=== PATIENT | female | born 1995 | race Caucasian/White ===

== ENCOUNTER 2019-12-13 13:45 | Observation (INO) | payer OTHER, SELFPAY ==
[2019-12-13 14:58] LABS: Add Urine Microscopic? YES; Appearance Urine Cloudy (Clear); Bacteria Urine 1+ /hpf; Bilirubin Urine Negative (Negative); Blood Urine Negative (Negative); Calcium Oxalate Crystals Urine Present /hpf; Color Urine Yellow (Yellow); Glucose Urine UA Negative (Negative); Ketones Urine 2+ mg/dL (Negative); Leukocyte Esterase Ur Negative LEU/UL (Negative); Mucus Urine Few /lpf; Nitrate Urine Negative (Negative); Protein Urine 1+ mg/dL (Negative); Specific Grav Ur 1.024 (1.001-1.035); Squamous Epithelial Cell Urine Many /hpf (Few); Urobilinogen Urine Negative mg/dL (<2.0)
[2019-12-13 15:08] VITALS: BP 125/77; PULSE 83
[2019-12-13 15:17] LABS: Fetal Fibronectin Negative
[2019-12-13 16:13] VITALS: RESP 20; TEMP 36.3
--- NOTE | 2019-12-13 17:11 | OBADM ---
This patient, Antoinette Romano, admitted to the OB room 103 for observation. Patient/family oriented to hospital policies and general routines including ID bracelet, bed and alarms, visiting hours, pain management, procedures, bathroom and other care routines and call light. Patient/Family are encouraged to report perceived risks to care and to ask questions if they do not understand what they are told or what they should do.
--- NOTE | 2020-01-09 07:50 | PM.OBTRLD ---
OB - Triage/Final Diagnosis Evaluation Laboratory results: Laboratory Tests 12/13/19 12/13/19 14:42 14:42 Urine Color Yellow Urine Appearance Cloudy H Urine pH 6.0 Ur Specific [place] 1.024 Urine Protein 1+ H Urine Glucose (UA) Negative Urine Ketones 2+ H Ur Blood (Man) Negative Urine Nitrate Negative Urine Bilirubin Negative Urine Urobilinogen Negative Leukocyte Esterase Rfl Negative Urine RBC 3-5 H Urine WBC 7-9 H Ur Squamous Epith Cells Many H Calcium Oxalate Crystal Present Urine Bacteria 1+ H Urine Mucus Few H Fibronectin Negative Final Diagnosis (1) False labor: Code(s): O47.9 - False labor, unspecified Status: Acute
== END 2019-12-13 16:15 | disposition home or self-care (01) ==
LOC: ANHLDR 13:54
PROVIDERS: Advanced Practice Midwife; Admitting Provider Obstetrics & Gynecology; Visit Provider Obstetrics & Gynecology
DX: O47.03 False labor before 37 completed weeks of gestation, third trimester (principal); Z3A.32 32 weeks gestation of pregnancy
CPT/HCPCS: 59025; 81001; 82731; 87086; 87088; G0378; G0379

== ENCOUNTER 2019-12-17 13:48 | Observation (INO) | payer OTHER, SELFPAY ==
[2019-12-17] VITALS (12 sets, daily range): BP systolic 134–151; BP diastolic 75–92; PULSE 85–117; O2SAT 93–100; BMI 29.7
--- NOTE | 2019-12-17 14:03 | OBADM ---
This patient, Antoinette Romano, admitted to the OB room OB Post 115 for observation. Patient/family oriented to hospital policies and general routines including ID bracelet, bed and alarms, visiting hours, pain management, procedures, bathroom and other care routines, personal items, smoking policy, room service/diet, and visiting hours. Patient/Family are encouraged to report perceived risks to care and to ask questions if they do not understand what they are told or what they should do.
[2019-12-17] MEDS: NIFEdipine 30 MG TAB.ER.24 PO (14:09)
[2019-12-17] MEDS: TERBUTALINE SULFATE 1 MG/ML VIAL 0.25 MG SUB-Q (16:02)
--- NOTE | 2019-12-19 17:48 | PM.OBTRLD ---
OB - Triage/Final Diagnosis Visit Information Date of evaluation: 12/17/19 Reason for evaluation: threatened labor
== END 2019-12-17 17:58 | disposition home or self-care (01) ==
PROVIDERS: Admitting Provider Obstetrics & Gynecology; Visit Provider Obstetrics & Gynecology
DX: O47.03 False labor before 37 completed weeks of gestation, third trimester (principal); Z3A.32 32 weeks gestation of pregnancy
CPT/HCPCS: 96372; A9270; G0378; G0379; J3105

== ENCOUNTER 2019-12-31 08:26 | Outpatient (RCR) | payer OTHER, SELFPAY ==
[2019-12-31 09:06] VITALS: BP 128/78; PULSE 82
== END 2020-01-21 08:02 | disposition home or self-care (01) ==
LOC: ANHOBOP 08:26
PROVIDERS: PCP Internal Medicine; Visit Provider Obstetrics & Gynecology
DX: O24.419 Gestational diabetes mellitus in pregnancy, unspecified control (principal); Z3A.34 34 weeks gestation of pregnancy
CPT/HCPCS: 59025

== ENCOUNTER 2019-12-31 20:26 | Observation (INO) | payer OTHER, SELFPAY ==
[2019-12-31 20:40] VITALS: TEMP 36.3
[2019-12-31 21:01] VITALS: BP 119/78; PULSE 72
[2019-12-31 21:31] VITALS: BP 118/65; PULSE 72
[2019-12-31 22:26] LABS: Add Urine Microscopic? YES; Appearance Urine Clear (Clear); Bacteria Urine Trace /hpf; Bilirubin Urine Negative (Negative); Blood Urine Negative (Negative); Color Urine Straw (Yellow); Glucose Urine UA Negative (Negative); Ketones Urine Trace mg/dL (Negative); Leukocyte Esterase Ur Negative LEU/UL (NEGATIVE); Mucus Urine Rare /lpf; Nitrate Urine Negative (Negative); Protein Urine Negative (Negative); RBC Urine 0-2 /hpf (0-2); Specific Grav Ur 1.013 (1.001-1.035); Squamous Epithelial Cell Urine Occasional /hpf (Few); Urobilinogen Urine Negative mg/dL (<2.0); WBC Urine 0-3 /hpf (0-3)
[2019-12-31] MEDS: TERBUTALINE SULFATE 1 MG/ML VIAL 0.25 MG SUB-Q (22:57)
--- NOTE | 2020-01-01 01:14 | OBADM ---
This patient, Antoinette Romano, admitted to the OB room OB Post 116 for observation. Patient/family oriented to hospital policies and general routines including ID bracelet, bed and alarms, visiting hours, pain management, procedures, bathroom and other care routines, personal items, smoking policy, room service/diet, and visiting hours. Patient/Family are encouraged to report perceived risks to care and to ask questions if they do not understand what they are told or what they should do.
--- NOTE | 2020-01-14 07:58 | PM.OBTRLD ---
OB - Triage/Final Diagnosis Evaluation Laboratory results: Laboratory Tests 12/31/19 22:12 Urine Color Straw Urine Appearance Clear Urine pH 6.0 Ur Specific [place] 1.013 Urine Protein Negative Urine Glucose (UA) Negative Urine Ketones Trace Ur Blood (Man) Negative Urine Nitrate Negative Urine Bilirubin Negative Urine Urobilinogen Negative Ur Leukocyte Esterase Negative Urine RBC 0-2 Urine WBC 0-3 Ur Squamous Epith Cells Occasional Urine Bacteria Trace Urine Mucus Rare Final Diagnosis (1) False labor: Code(s): O47.9 - False labor, unspecified Status: Acute
== END 2020-01-01 01:00 | disposition home or self-care (01) ==
PROVIDERS: Advanced Practice Midwife; Admitting Provider Obstetrics & Gynecology; PCP Internal Medicine; Visit Provider Obstetrics & Gynecology
DX: O47.9 False labor, unspecified (principal); Z3A.00 Weeks of gestation of pregnancy not specified
CPT/HCPCS: 81001; 84112; 87086; 87088; 96372; G0378; G0379; J3105

== ENCOUNTER 2020-01-03 11:27 | Outpatient (CLI) | payer OTHER, SELFPAY ==
[2020-01-03 11:48] VITALS: BP 150/85; PULSE 78
[2020-01-03 12:01] VITALS: BP 137/88; PULSE 78
[2020-01-03 12:07] LABS: Add Urine Microscopic? YES; Appearance Urine Clear (Clear); Bacteria Urine 2+ /hpf; Bilirubin Urine Negative (Negative); Blood Urine Negative (Negative); Color Urine Yellow (Yellow); Glucose Urine UA Negative (Negative); Ketones Urine 1+ mg/dL (Negative); Leukocyte Esterase Ur Negative LEU/UL (NEGATIVE); Mucus Urine Rare /lpf; Nitrate Urine Negative (Negative); Protein Urine Negative (Negative); RBC Urine 0-2 /hpf (0-2); Specific Grav Ur 1.015 (1.001-1.035); Squamous Epithelial Cell Urine Occasional /hpf (Few); Urobilinogen Urine Negative mg/dL (<2.0); WBC Urine 0-3 /hpf (0-3)
[2020-01-03 12:12] LABS: Creatinine Urine 119.7 mg/dL; Total Protein Urine Random 9 mg/dL
[2020-01-03 12:15] LABS: Basophils Percent Auto 0.4 % (0.2-1.2); Eosinophils Absolute Auto 0.1 K/mm3 (0-0.3); Eosinophils Percent Auto 0.7 % (0-4.4); Hematocrit 31.6 % (37.0-47.0); Hemoglobin 10.1 g/dL (12.0-15.0); Immature Granulocyte Absolute 0.04 K/mm3 (0.00-0.031); Immature Granulocyte Percent A 0.5 % (0-0.5); Lymphocytes Absolute Auto 1.55 K/mm3 (0.9-3.2); Lymphocytes Percent Auto 19.2 % (18.3-44.2); Mean Corpuscular Hemoglobin 27.8 pg (26-34); Mean Corpuscular Volume 87.1 fl (80-100); Mean Platelet Volume 12.2 fl (7.4-10.4); Monocytes Absolute Auto 0.6 K/mm3 (0.1-0.6); Monocytes Percent Auto 7.9 % (2.6-8.5); Neutrophils Absolute Auto 5.8 K/mm3 (1.3-6.7); Neutrophils Percent Auto 71.3 % (45.5-73.1); Platelet Count Result 259 k/mm3 (150-375); Red Blood Count 3.63 M/mm3 (4.2-5.4); Red Cell Distribution Width 13.2 % (11.5-14.5); White Blood Count 8.1 K/mm3 (4.5-10.0)
[2020-01-03 12:16] VITALS: BP 132/78; PULSE 80
[2020-01-03 12:21] LABS: Alanine Aminotransferase 11 U/L (4-35); Albumin Level 3.4 g/dL (3.5-5.1); Alkaline Phosphatase 174 U/L (38-126); Anion Gap 7 mmol/L (8-16); Aspartate Amino Transferase 18 U/L (14-36); Bilirubin,Total 0.4 mg/dL (0.2-1.3); Blood Urea Nitrogen 10 mg/dL (7-17); Calcium 8.7 mg/dL (8.4-10.2); Carbon Dioxide 20 mmol/L (22-30); Chloride 106 mmol/L (98-107); Estimated Glomerular Filt Rate > 60; Glucose 81 mg/dL (65-105); Potassium 3.8 mmol/L (3.4-5.0); Sodium 133 mmol/L (137-145); Uric Acid 4.9 mg/dL (2.5-7.5)
[2020-01-03 12:31] VITALS: BP 131/83; PULSE 72
[2020-01-03 12:50] VITALS: BP 131/83; PULSE 71
== END 2020-01-03 12:55 | disposition home or self-care (01) ==
LOC: ANHOBOP 11:32 → ANHOBPP 11:32
PROVIDERS: Advanced Practice Midwife; PCP Internal Medicine; Visit Provider Obstetrics & Gynecology
DX: O14.90 Unspecified pre-eclampsia, unspecified trimester (principal)
CPT/HCPCS: 36415; 59025; 80053; 81001; 82570; 84156; 84550; 85025; 87086; 87088; 99199

== ENCOUNTER 2020-01-07 11:55 | Observation (INO) | payer OTHER, SELFPAY ==
[2020-01-07 12:31] VITALS: BP 108/72; PULSE 65
[2020-01-07 12:46] VITALS: BP 114/72; PULSE 65
[2020-01-07 13:01] VITALS: BP 117/75; PULSE 71
[2020-01-07 13:13] VITALS: BP 108/72; PULSE 63
[2020-01-07 13:22] VITALS: BMI 29.7
--- NOTE | 2020-01-07 13:26 | PC.NURSE ---
1300- Spoke with Joel Rudd CNM, patient here for observation for seeing spots in front of eyes after getting out of the bathtub. patient states she is also feeling cramping. Rating pain 3/10. Spots no longer in front of eyes at this time. Orders for [facility] labs to be drawn and patient to be discharged to go to US appointment over in office and to see Dr. Ulloa at 1400.
[2020-01-07 13:34] LABS: Basophils Percent Auto 0.2 % (0.2-1.2); Eosinophils Percent Auto 0.3 % (0-4.4); Hematocrit 30.2 % (37.0-47.0); Hemoglobin 9.5 g/dL (12.0-15.0); Immature Granulocyte Absolute 0.04 K/mm3 (0.00-0.031); Immature Granulocyte Percent A 0.4 % (0-0.5); Lymphocytes Absolute Auto 1.21 K/mm3 (0.9-3.2); Lymphocytes Percent Auto 13.3 % (18.3-44.2); Mean Corpuscular HGB Conc 31.5 g/dl (32-36); Mean Corpuscular Hemoglobin 27.5 pg (26-34); Mean Corpuscular Volume 87.3 fl (80-100); Mean Platelet Volume 12.3 fl (7.4-10.4); Monocytes Absolute Auto 0.5 K/mm3 (0.1-0.6); Monocytes Percent Auto 5.9 % (2.6-8.5); Neutrophils Absolute Auto 7.2 K/mm3 (1.3-6.7); Neutrophils Percent Auto 79.9 % (45.5-73.1); Platelet Count Result 223 k/mm3 (150-375); Red Blood Count 3.46 M/mm3 (4.2-5.4); Red Cell Distribution Width 13.4 % (11.5-14.5); White Blood Count 9.1 K/mm3 (4.5-10.0)
[2020-01-07 13:39] LABS: Creatinine Urine 242.3 mg/dL; Total Protein Urine Random 8 mg/dL
[2020-01-07 13:41] LABS: Alanine Aminotransferase 9 U/L (4-35); Albumin Level 3.3 g/dL (3.5-5.1); Alkaline Phosphatase 162 U/L (38-126); Anion Gap 7 mmol/L (8-16); Aspartate Amino Transferase 17 U/L (14-36); Bilirubin,Total 0.3 mg/dL (0.2-1.3); Blood Urea Nitrogen 11 mg/dL (7-17); Calcium 8.2 mg/dL (8.4-10.2); Carbon Dioxide 20 mmol/L (22-30); Chloride 107 mmol/L (98-107); Estimated CRCL calculation 153 ml/min; Estimated Glomerular Filt Rate > 60; Glucose 81 mg/dL (65-105); Potassium 3.6 mmol/L (3.4-5.0); Sodium 134 mmol/L (137-145); Uric Acid 4.5 mg/dL (2.5-7.5)
[2020-01-07 13:45] LABS: Add Urine Microscopic? YES; Appearance Urine Cloudy (Clear); Bacteria Urine 4+ /hpf; Bilirubin Urine Negative (Negative); Blood Urine Negative (Negative); Color Urine Yellow (Yellow); Glucose Urine UA Negative (Negative); Ketones Urine 2+ mg/dL (Negative); Leukocyte Esterase Ur Trace LEU/UL (NEGATIVE); Mucus Urine Moderate /lpf; Nitrate Urine Negative (Negative); Protein Urine 2+ mg/dL (Negative); RBC Urine 0-2 /hpf (0-2); Specific Grav Ur 1.025 (1.001-1.035); Squamous Epithelial Cell Urine Moderate /hpf (Few); Urobilinogen Urine Negative mg/dL (<2.0)
--- NOTE | 2020-01-07 14:02 | PC.NURSE ---
1400- Spoke with Joel Rudd CNM, reviewed lab results. No new orders.
--- NOTE | 2020-01-31 08:13 | PM.OBTRLD ---
OB - Triage/Final Diagnosis Evaluation Laboratory results: Laboratory Tests 01/07/20 01/07/20 01/07/20 13:08 13:08 13:08 WBC 9.1 RBC 3.46 L Hgb 9.5 L Hct 30.2 L MCV 87.3 MCH 27.5 MCHC 31.5 L RDW 13.4 Plt Count 223 MPV 12.3 H Immature Gran % (Auto) 0.4 Neut % (Auto) 79.9 H Lymph % (Auto) 13.3 L [place] % (Auto) 5.9 Eos % (Auto) 0.3 Baso % (Auto) 0.2 Lymph # (Auto) 1.21 [place] # (Auto) 0.5 Eos # (Auto) 0.0 Baso # (Auto) 0.0 Abs Immat Gran (auto) 0.04 H Absolute Neuts (auto) 7.2 H Absolute Nucleated RBC 0.0 Nucleated RBC % 0.0 Sodium Potassium Chloride Carbon Dioxide Anion Gap BUN Creatinine Estim Creat Clear Calc Estimated GFR Glucose Uric Acid Calcium Total Bilirubin AST ALT Alkaline Phosphatase Total Protein Albumin Urine Color Yellow Urine Appearance Cloudy H Urine pH 6.0 Ur Specific [place] 1.025 Urine Protein 2+ H Urine Glucose (UA) Negative Urine Ketones 2+ H Ur Blood (Man) Negative Urine Nitrate Negative Urine Bilirubin Negative Urine Urobilinogen Negative Ur Leukocyte Esterase Trace H Urine RBC 0-2 Urine WBC 4-6 H Ur Squamous Epith Cells Moderate H Urine Bacteria 4+ H Hyaline Casts 3-4 H Urine Mucus Moderate H U Random Total Protein 8 Urine Creatinine 242.3 01/07/20 13:08 WBC RBC Hgb Hct MCV MCH MCHC RDW Plt Count MPV Immature Gran % (Auto) Neut % (Auto) Lymph % (Auto) [place] % (Auto) Eos % (Auto) Baso % (Auto) Lymph # (Auto) [place] # (Auto) Eos # (Auto) Baso # (Auto) Abs Immat Gran (auto) Absolute Neuts (auto) Absolute Nucleated RBC Nucleated RBC % Sodium 134 L Potassium 3.6 Chloride 107 Carbon Dioxide 20 L Anion Gap 7 L BUN 11 Creatinine 0.50 L Estim Creat Clear Calc 153 Estimated GFR > 60 Glucose 81 Uric Acid 4.5 Calcium 8.2 L Total Bilirubin 0.3 AST 17 ALT 9 Alkaline Phosphatase 162 H Total Protein 6.0 L Albumin 3.3 L Urine Color Urine Appearance Urine pH Ur Specific [place] Urine Protein Urine Glucose (UA) Urine Ketones Ur Blood (Man) Urine Nitrate Urine Bilirubin Urine Urobilinogen Ur Leukocyte Esterase Urine RBC Urine WBC Ur Squamous Epith Cells Urine Bacteria Hyaline Casts Urine Mucus U Random Total Protein Urine Creatinine Final Diagnosis (1) False labor: Code(s): O47.9 - False labor, unspecified Status: Acute
== END 2020-01-07 13:20 | disposition home or self-care (01) ==
PROVIDERS: Advanced Practice Midwife; Admitting Provider Obstetrics & Gynecology; PCP Internal Medicine; Referring Provider Obstetrics & Gynecology; Visit Provider Obstetrics & Gynecology
DX: O47.9 False labor, unspecified (principal); Z3A.00 Weeks of gestation of pregnancy not specified
CPT/HCPCS: 36415; 59025; 80053; 81001; 82570; 84156; 84550; 85025; G0378; G0379

== ENCOUNTER 2020-01-18 05:55 | Inpatient (IN) | payer OTHER, SELFPAY ==
[2020-01-18] VITALS (50 sets, daily range): BP systolic 118–139; BP diastolic 59–103; PULSE 57–96; TEMP 36.4–36.6
[2020-01-18 07:09] LABS: Basophils Percent Auto 0.5 % (0.2-1.2); Eosinophils Absolute Auto 0.1 K/mm3 (0-0.3); Eosinophils Percent Auto 0.9 % (0-4.4); Hematocrit 29.3 % (37.0-47.0); Hemoglobin 9.4 g/dL (12.0-15.0); Immature Granulocyte Absolute 0.06 K/mm3 (0.00-0.031); Immature Granulocyte Percent A 0.8 % (0-0.5); Lymphocytes Absolute Auto 1.86 K/mm3 (0.9-3.2); Lymphocytes Percent Auto 23.9 % (18.3-44.2); Mean Corpuscular HGB Conc 32.1 g/dl (32-36); Mean Corpuscular Hemoglobin 27.8 pg (26-34); Mean Corpuscular Volume 86.7 fl (80-100); Mean Platelet Volume 12.7 fl (7.4-10.4); Monocytes Absolute Auto 0.6 K/mm3 (0.1-0.6); Monocytes Percent Auto 7.6 % (2.6-8.5); Neutrophils Absolute Auto 5.2 K/mm3 (1.3-6.7); Neutrophils Percent Auto 66.3 % (45.5-73.1); Platelet Count Result 232 k/mm3 (150-375); Red Blood Count 3.38 M/mm3 (4.2-5.4); Red Cell Distribution Width 13.6 % (11.5-14.5); White Blood Count 7.8 K/mm3 (4.5-10.0)
--- NOTE | 2020-01-18 07:44 | WPDOBADMIT ---
Obstetrics - Admit Note Admission Note: record reviewed. No pertinent additions to the history and/or any subsequent changes in the physical findings that are not consistent with the expected course of the were found. MIL for gestational HTN, cervix closed/50/-3 Additions to the history and/or subsequent changes in the physical findings follow. None.
--- NOTE | 2020-01-18 07:45 | P.HP_ITS ---
H&P: HPI History of Present Illness Date/Time: 01/18/20 07:45 Chief complaint: IOL Narrative: Antoinette Romano is a 24 year old female [facility] Family History Family History (Updated 01/08/20 @ 15:41 by Nawaf Steele RN) Grandparent Melanoma Grandparent Cancer Social History Social History Smoking status: Never smoker Substance use: never Spiritual care concerns: No Meds Home Medications and Allergies Home Medications Medication Instructions Recorded Confirmed Type Daily 1 pkg PO DAILY 12/17/19 12/31/19 History Allergies Allergy/AdvReac Type Severity Reaction Status Date / Time SORAYA Allergy Rash Uncoded 01/08/20 15:39 Vital Signs Vital Signs - 24 hr 01/18/20 06:22 01/18/20 06:30 01/18/20 06:45 Pulse Rate 86 81 69 Blood Pressure 138/89 131/85 128/84 01/18/20 07:00 01/18/20 07:15 01/18/20 07:30 Pulse Rate 68 71 74 Blood Pressure 128/79 125/81 132/94 H H&P: Results Labs Labs: Short CBC 01/18/20 Range/Units 07:04 WBC 7.8 (4.5-10.0) K/mm3 Hgb 9.4 L (12.0-15.0) g/dL Hct 29.3 L (37.0-47.0) % Plt Count 232 (150-375) k/mm3 Assessment and Plan Assessment and plan (1) Gestational HTN: Code(s): O13.9 - Gestational [-induced] hypertension without significant proteinuria, unspecified trimester Status: Acute
[2020-01-18] MEDS: DINOPROSTONE 10 MG VAG INSERT VAGINAL ×2 (08:25→21:34)
[2020-01-18 11:13] LABS: Rapid Plasma Reagin Non-Reactive (NonReactive)
[2020-01-18 11:47] LABS: Glucose Point of Care 77 (65-105)
[2020-01-18 14:08] LABS: Glucose Point of Care 93 (65-105)
--- NOTE | 2020-01-18 14:18 | WPDANESEPP ---
Anes - Eval Pre Procedure Procedure: labor epidural Date/Time: 01/18/20 14:18 Surgeon: nancy Pre Op Diagnosis: IOL Patient Data Age: 24 Gender: F Height: Weight: Last Vital Signs Pulse 91 01/18/20 14:15 BP 125/84 01/18/20 14:15 Allergies Allergy/AdvReac Type Severity Reaction Status Date / Time SORAYA Allergy Rash Uncoded 01/08/20 15:39 Home Medications Medication Instructions Recorded Confirmed Type Daily 1 pkg PO DAILY 12/17/19 12/31/19 History Laboratory Tests 01/18/20 01/18/20 01/18/20 07:04 07:04 07:04 WBC 7.8 K/mm3 K/mm3 (4.5-10.0) RBC 3.38 M/mm3 L M/mm3 (4.2-5.4) Hgb 9.4 g/dL L g/dL (12.0-15.0) Hct 29.3 % L % (37.0-47.0) MCV 86.7 fl fl (80-100) MCH 27.8 pg pg (26-34) MCHC 32.1 g/dl g/dl (32-36) RDW 13.6 % % (11.5-14.5) Plt Count 232 k/mm3 k/mm3 (150-375) MPV 12.7 fl H fl (7.4-10.4) Immature Gran % (Auto) 0.8 % H % (0-0.5) Neut % (Auto) 66.3 % % (45.5-73.1) Lymph % (Auto) 23.9 % % (18.3-44.2) [place] % (Auto) 7.6 % % (2.6-8.5) Eos % (Auto) 0.9 % % (0-4.4) Baso % (Auto) 0.5 % % (0.2-1.2) Lymph # (Auto) 1.86 K/mm3 K/mm3 (0.9-3.2) [place] # (Auto) 0.6 K/mm3 K/mm3 (0.1-0.6) Eos # (Auto) 0.1 K/mm3 K/mm3 (0-0.3) Baso # (Auto) 0.0 K/mm3 K/mm3 (0.0-0.1) Abs Immat Gran (auto) 0.06 K/mm3 H K/mm3 (0.00-0.031) Absolute Neuts (auto) 5.2 K/mm3 K/mm3 (1.3-6.7) Absolute Nucleated RBC 0.0 K/mm3 K/mm3 (0.0-0.012) Nucleated RBC % 0.0 % % (0.0-0.2) POC Capillary Glucose RPR Non-reactive (NonReactive) Blood Type A Positive Antibody Screen Negative 01/18/20 01/18/20 11:42 14:04 WBC RBC Hgb Hct MCV MCH MCHC RDW Plt Count MPV Immature Gran % (Auto) Neut % (Auto) Lymph % (Auto) [place] % (Auto) Eos % (Auto) Baso % (Auto) Lymph # (Auto) [place] # (Auto) Eos # (Auto) Baso # (Auto) Abs Immat Gran (auto) Absolute Neuts (auto) Absolute Nucleated RBC Nucleated RBC % POC Capillary Glucose 77 mg/dl mg/dl 93 mg/dl mg/dl (65-105) (65-105) RPR Blood Type Antibody Screen Patient hx anesthesia problems: none Family hx anesthesia problems: none PMFSH Family History Family History Grandparent Melanoma Grandparent Cancer Social History Social History Smoking status: Never smoker Substance use: never Spiritual care concerns: No Exam Day of Procedure 01/18/20 14:18 Patient weight: overweight Heart: regular rate and rhythm Lungs: normal air movement Airway: Mallampati scale class II Neurological: alert and oriented
[2020-01-18 18:00] LABS: Glucose Point of Care 75 (65-105)
[2020-01-18 21:37] LABS: Glucose Point of Care 80 (65-105)
[2020-01-19] VITALS (114 sets, daily range): BP systolic 105–148; BP diastolic 45–97; PULSE 55–136; RESP 18; TEMP 36.9–37.7; O2SAT 95–100
[2020-01-19 01:12] LABS: Glucose Point of Care 74 (65-105)
[2020-01-19 06:00] LABS: Glucose Point of Care 91 (65-105)
[2020-01-19] MEDS: ONDANSETRON INJ 4 MG/2 ML VIAL IV PUSH (07:01)
[2020-01-19] MEDS: LACTATED RINGERS 1,000 ML 125 ML IV CONT ×2 (08:31→09:10)
[2020-01-19] MEDS: fentaNYL CITRATE INJ (*CRX) 100 MCG/2 ML VIAL 50 MCG IV PUSH ×2 (08:37→09:05)
[2020-01-19] MEDS: OXYTOCIN 30 UNITS/NS 500 ML 30 UNITS/500 ML BAG 6 UNITS IV CONT (10:55)
[2020-01-19 14:43] LABS: Glucose Point of Care 88 (65-105)
[2020-01-19 14:43] LABS: Glucose Point of Care 93 (65-105)
--- NOTE | 2020-01-19 16:25 | PM.OBPRVD ---
OB - Delivery Note Procedure Delivery date: 01/19/20 Procedure: Normal spontaneous vaginal delivery events: Gestational Diabetes and Induced HTN Intrapartal events: None Induction method: AROM, per misoprostol protocol and per pitocin protocol Delivery monitor: external FHT and internal uterine Route of delivery: Episiotomy description: None Laceration description: Cervical - 2nd Degree ( with bilateral labial first-degree lacs) Delivery repair: vicryl Specimen: Yes Estimated blood loss (mL): 500 Anesthesia type: Epidural Disposition: floor [place] Baby Date of : 01/19/20 Time of : 15:53 Weeks of gestation at delivery: 38 gender: Female Weight (pounds): 8 Weight (ounces): 0 presentation: vertex position: Left Occiput Anterior Placenta delivery description: Spontaneous cord vessel description: 3 Vessels score one minute: 8 score five minutes: 8
[2020-01-19] MEDS: OXYTOCIN 30 UNITS/NS 500 ML 30 UNITS/500 ML BAG 125 UNITS IV CONT (16:32)
[2020-01-19] MEDS: IBUPROFEN 600 MG TABLET PO (18:42)
[2020-01-19] MEDS: BENZOCAINE 20% AER SPR (*SP) 56 GM CAN 1 SPRAY TOPICAL (18:42)
[2020-01-19] MEDS: WITCH HAZEL 40 PADS 1 PAD TOPICAL (18:42)
--- NOTE | 2020-01-19 19:45 | PC.NURSE ---
Patient transferred to post room #283 via stretcher. Support person present. Oriented to unit, room, information board, rooming in, admission packet and security measures. Patient verbalizes understanding.
[2020-01-20] MEDS: IBUPROFEN 600 MG TABLET PO ×3 (04:08→19:21)
[2020-01-20 05:06] LABS: Hematocrit 25.5 % (37.0-47.0); Hemoglobin 8.2 g/dL (12.0-15.0)
[2020-01-20 07:00] VITALS: BP 118/65; PULSE 62; RESP 20; TEMP 36.6
--- NOTE | 2020-01-20 10:20 | WPDANLDPN2 ---
Anes-Prog Note L&D Date/Time: 01/20/20 10:20 Comfortable throughout: labor Neuraxial method: epidural Epidural/Spinal procedure site: clean & non-tender Neuro status: Neuro function grossly intact. Cardiovascular status: normal Respiratory status: normal Airway patency: baseline Mental status: baseline Post-Op hydration status: normal Vital Signs: Last Vital Signs Temp 36.6 C 01/20/20 07:00 Pulse 62 01/20/20 07:00 Resp 20 01/20/20 07:00 BP 118/65 01/20/20 07:00 Pulse Ox 100 01/19/20 19:45 Pain score (VAS): 0/0 I/O: Intake & Output 01/19/20 01/20/20 01/20/20 23:59 07:59 15:59 Intake Total 500 Output Total 360 Balance 140 Post-procedural complaints: none Patient feedback: Patient satisfied with anesthetic care.
--- NOTE | 2020-01-20 11:05 | PM.OBPNVD ---
OB - PN: Subj Subjective Date/time seen: 01/20/20 11:05 Patient comments: no complaints, pain well controlled, incisional pain, tolerating diet and flatus present OB - PN: Obj Data Labs CBC & Chem 7: 01/20/20 04:34 Labs: Laboratory Results - last 24 hr 01/19/20 01/19/20 01/20/20 10:58 14:41 04:34 Hgb 8.2 L Hct 25.5 L POC Capillary Glucose 93 88 OB - PN A/P Plan day: 1 Plan: routine care Comments: No problems, routine care Time Spent With Patient Time: Total time spent is greater than 50% in coordination of care (as documented) at patient's floor/unit and/or counseling patient: Exam Const: General: comfortable, no acute distress and alert Resp: Effort & Inspection: normal respiratory effort Auscultation: no crackles, no rales and no rhonchi Cardio: Rate: regular rate Heart sounds: no click, no murmurs and no rubs GI: Inspection: non-distended GI Palp: No Tenderness to palpation present (GI) Auscultation: normal bowel sounds Other: Incision - CDI Extrem: General: normal to inspection, no pedal edema and no calf tenderness
[2020-01-20] MEDS: MULTIVIT/MIN/PREN/FOL AC/IRON TABLET 1 TAB PO (11:37)
[2020-01-20] MEDS: POLYSACCHARIDE IRON COMPLEX 150 MG CAPSULE PO ×2 (11:37→17:30)
[2020-01-20] MEDS: DOCUSATE SODIUM 100 MG CAPSULE PO (17:30)
[2020-01-20 20:00] VITALS: BP 119/79; PULSE 70; RESP 16; TEMP 36.6; O2SAT 100
[2020-01-21 07:00] VITALS: BP 108/71; PULSE 70; RESP 18; TEMP 36.4
[2020-01-21] MEDS: IBUPROFEN 600 MG TABLET PO (07:03)
[2020-01-21] MEDS: DOCUSATE SODIUM 100 MG CAPSULE PO (07:05)
[2020-01-21] MEDS: WITCH HAZEL 40 PADS 1 PAD TOPICAL (07:05)
[2020-01-21] MEDS: POLYSACCHARIDE IRON COMPLEX 150 MG CAPSULE PO (07:05)
[2020-01-21] MEDS: BENZOCAINE 20% AER SPR (*SP) 56 GM CAN 1 SPRAY TOPICAL (07:05)
[2020-01-21] MEDS: MULTIVIT/MIN/PREN/FOL AC/IRON TABLET 1 TAB PO (07:05)
--- NOTE | 2020-01-21 07:51 | PM.OBPNVD ---
OB - PN: Subj Subjective Date/time seen: 01/21/20 07:51 Patient comments: no complaints, pain well controlled and tolerating diet OB - PN: Obj Data Labs CBC & Chem 7: 01/20/20 04:34 OB - PN A/P Plan day: 2 Plan: routine care and discharge home Time Spent With Patient Time: Total time spent is greater than 50% in coordination of care (as documented) at patient's floor/unit and/or counseling patient: Exam Const: General: comfortable and no acute distress Resp: Effort & Inspection: normal respiratory effort Auscultation: no rales, no rhonchi and no wheezes Cardio: Rate: regular rate Heart sounds: no click, no murmurs and no rubs GI: GI Palp: Yes Soft to palpation and No Tenderness to palpation present (GI) Auscultation: normal bowel sounds Extrem: General: normal to inspection, no pedal edema and no calf tenderness
--- NOTE | 2020-01-21 07:51 | PM.OBDSVD ---
DS: Admitting Diagnosis Admitting Diagnosis Admitting Diagnosis: IOL DS: Discharge Diagnosis Discharge Diagnosis (1) Diabetes in : Code(s): O24.919 - Unspecified diabetes mellitus in , unspecified trimester Status: Acute (2) Gestational HTN: Code(s): O13.9 - Gestational [-induced] hypertension without significant proteinuria, unspecified trimester Status: Acute (3) Term delivered: Code(s): O80 - Encounter for full-term uncomplicated delivery Status: Acute OB - DS: Summary OB Procedures : NST, PIH Mgmt and Ultrasound OB Procedures Intrapartum: Spontaneous Vag Delivery OB Procedures: : None Peripartum Data Infant Delivery Method: Natural Vaginal Laceration description: Vaginal - 2nd Degree complications: none Status at Discharge Functional status at discharge: independent ambulation Time Spent with Patient Time attestation: Total time spent providing and/or coordinating discharge services: Time spent: Less than 30 minutes DS: Data Data Completed and Pending Pending studies at discharge: Pending at discharge 01/19/20 16:36 Surgical [PTH] Routine Discharge Plan Discharge Discharging Clinician: Bienvenido Ulloa Patient Disposition: Home, Self-Care Activity: pelvic rest Diet: regular Patient Instructions: Antibiotic Form Stand Alone Forms: General Discharge Information Follow-up/Referrals: Bienvenido Ulloa MD [Physician] - Discharge Medications: New hydrocodone-acetaminophen 5-325 mg tablet 1 - 2 tablet PO Q4H PRN (Reason: pain) Qty: 25 RF: 0 Continued Daily [phone] mg-mcg-mg Combo Pack 1 pkg PO DAILY RF: 0 Date of admission: 01/18/20 05:55 Primary Care Provider: Allan,Carlos Maldonado Admitting Provider: Bienvenido Ulloa Attending physician on admission: Bienvenido Ulloa
[2020-01-23 08:51] VITALS: BP 140/71; PULSE 78; RESP 20; TEMP 36.8; O2SAT 99
== END 2020-01-21 11:40 | disposition home or self-care (01) | DRG 807 ==
LOC: ANHLDR 06:02 → ANHOB2 01-19 19:32
PROVIDERS: Admitting Provider Obstetrics & Gynecology; PCP Internal Medicine; Visit Provider Obstetrics & Gynecology
DX: O13.4 Gestational [pregnancy-induced] hypertension without significant proteinuria, complicating childbirth (principal); Z37.0 Single live birth; O70.1 Second degree perineal laceration during delivery; O24.429 Gestational diabetes mellitus in childbirth, unspecified control; Z3A.37 37 weeks gestation of pregnancy; Z23 Encounter for immunization
CPT/HCPCS: 36415; 85014; 85018; 85025; 86592; 86850; 86900; 86901; 88307; 90471; 90686; A9270; G0008; J2405; J2590; J2795; J3010; J7120

== ENCOUNTER 2021-06-27 07:10 | Observation (INO) | payer OTHER, SELFPAY ==
[2021-06-27] VITALS (7 sets, daily range): BP systolic 106–129; BP diastolic 63–87; PULSE 58–167; BMI 30.8
--- NOTE | 2021-06-27 09:44 | OBADM ---
This patient, Antoinette Jennings, admitted to the OB room Labor/Delivery/Recovery 104 for observation. Patient/family oriented to hospital policies and general routines including ID bracelet, bed and alarms, visiting hours, pain management, procedures, bathroom and other care routines, personal items, smoking policy, room service/diet, and visiting hours. Patient/Family are encouraged to report perceived risks to care and to ask questions if they do not understand what they are told or what they should do.
--- NOTE | 2021-07-21 21:16 | PM.OBTRLD ---
OB - Triage/Final Diagnosis Visit Information Comments/Additional reasons for admission: I have assessed the risk for this patient, Antoinette Jennings, and determined that she would benefit from observation care. Final Diagnosis (1) Vaginal discharge during in third trimester: Code(s): O26.893 - Other specified related conditions, third trimester; N89.8 - Other specified noninflammatory disorders of vagina Status: Acute
== END 2021-06-27 09:52 | disposition home or self-care (01) ==
PROVIDERS: Admitting Provider Obstetrics & Gynecology; PCP Internal Medicine; Visit Provider Obstetrics & Gynecology
DX: O26.893 Other specified pregnancy related conditions, third trimester (principal); N89.8 Other specified noninflammatory disorders of vagina; Z3A.00 Weeks of gestation of pregnancy not specified
CPT/HCPCS: 84112; G0378; G0379

== ENCOUNTER 2021-07-04 21:41 | Outpatient (CLI) | payer OTHER, SELFPAY | END 2021-07-04 21:42 | disposition home or self-care (01) | LOC: ANHOBOP 23:03 | PROVIDERS: PCP Internal Medicine; Visit Provider Obstetrics & Gynecology | DX: O42.90 Premature rupture of membranes, unspecified as to length of time between rupture and onset of labor, unspecified weeks of gestation (principal); Z3A.00 Weeks of gestation of pregnancy not specified | CPT/HCPCS: 84112 ==

== ENCOUNTER 2021-07-10 06:29 | Inpatient (IN) | payer OTHER, SELFPAY ==
[2021-07-10] VITALS (81 sets, daily range): BP systolic 89–144; BP diastolic 22–104; PULSE 51–179; RESP 16–18; TEMP 36.6–37.1; O2SAT 96–100; BMI 32.1
--- NOTE | 2021-07-10 06:29 | LDADM ---
This patient, Antoinette Jennings, was admitted to Labor/Delivery/Recovery 105 on 07/10/21 at 06:29. Plans for labor, pain management and were discussed with patient. Patient/family oriented to hospital policies and general routines including ID bracelet, bed and alarms, visiting hours, pain management, procedures, bathroom and other care routines, personal items, smoking policy, room service/diet and guest tray routines, security routines, and visiting hours. Patient/Family are encouraged to report perceived risks to care and to ask questions if they do not understand what they are told or what they should do. See OBIX for further documentation.
--- NOTE | 2021-07-10 07:09 | WPDANESEPP ---
Anes - Eval Pre Procedure Procedure: labor epidural Date/Time: 07/10/21 07:09 Surgeon: georgette Preop Diagnosis: pain during labor Pre Op Diagnosis: Induction of Labor Patient Data Age: 26 Gender: F Height: Weight: Allergies Allergy/AdvReac Type Severity Reaction Status Date / Time SORAYA Allergy Rash Uncoded 06/23/21 14:32 Home Medications Medication Instructions Recorded Confirmed Type Daily 1 pkg PO DAILY 12/17/19 01/19/20 History Patient hx anesthesia problems: none Family hx anesthesia problems: none Results Review: All pre-operative results and documents have been reviewed as part of the pre-operative evaluation. [facility] Past Medical History Medical History (Updated 07/10/21 @ 07:10 by Carole Parker CRNA) Gestational diabetes IUP (intrauterine ), incidental PIH ( induced hypertension) Family History Family History Grandparent Melanoma Grandparent Cancer Social History Social History Smoking status: Never smoker Substance use: never Spiritual care concerns: No Exam Day of Procedure 07/10/21 07:09
[2021-07-10 07:27] LABS: Basophils Percent Auto 0.4 % (0.2-1.2); Eosinophils Absolute Auto 0.1 K/mm3 (0-0.3); Eosinophils Percent Auto 0.9 % (0-4.4); Hematocrit 30.3 % (37.0-47.0); Hemoglobin 9.7 g/dL (12.0-15.0); Immature Granulocyte Absolute 0.11 K/mm3 (0.00-0.031); Immature Granulocyte Percent A 1.1 % (0-0.5); Lymphocytes Absolute Auto 2.76 K/mm3 (0.9-3.2); Lymphocytes Percent Auto 28.2 % (18.3-44.2); Mean Corpuscular Hemoglobin 26.9 pg (26-34); Mean Corpuscular Volume 83.9 fl (80-100); Mean Platelet Volume 12.2 fl (7.4-10.4); Monocytes Absolute Auto 0.6 K/mm3 (0.1-0.6); Monocytes Percent Auto 6.2 % (2.6-8.5); Neutrophils Absolute Auto 6.2 K/mm3 (1.3-6.7); Neutrophils Percent Auto 63.2 % (45.5-73.1); Platelet Count Result 229 k/mm3 (150-375); Red Blood Count 3.61 M/mm3 (4.2-5.4); Red Cell Distribution Width 15.2 % (11.5-14.5); White Blood Count 9.8 K/mm3 (4.5-10.0)
[2021-07-10] MEDS: LACTATED RINGERS 1,000 ML 125 ML IV CONT ×2 (07:37→10:10)
[2021-07-10] MEDS: OXYTOCIN 30 UNITS/NS 500 ML 30 UNITS/500 ML BAG IV CONT (07:40)
--- NOTE | 2021-07-10 07:44 | PM.IMHP ---
H&P: HPI History of Present Illness Date/Time: 07/10/21 07:44 Chief Complaint: induction of labor Narrative: Antoinette is a 26yo at 39.0 for elective IOL. complicated by short iinterval , polyhydramnios, history of PreE last . Review of Systems Review of Systems: All systems reviewed & are unremarkable except as noted in HPI and below PMFSH Past Medical History Medical History (Updated 07/10/21 @ 07:45 by Ayleen Alves MD) Gestational diabetes IUP (intrauterine ), incidental PIH ( induced hypertension) Family History Family History Grandparent Melanoma Grandparent Cancer Social History Social History Smoking status: Never smoker Substance use: never Spiritual care concerns: No Meds Home Medications and Allergies Home Medications Medication Instructions Recorded Confirmed Type Daily 1 pkg PO DAILY 12/17/19 01/19/20 History ferrous sulfate 325 mg BYMOUTH BID 07/10/21 07/10/21 History Allergies Allergy/AdvReac Type Severity Reaction Status Date / Time SORAYA Allergy Rash Uncoded 07/10/21 07:44 Exam Const: General: no acute distress Resp: Effort & Inspection: normal respiratory effort Auscultation: clear to auscultation bilaterally Cardio: Rate: regular rate Rhythm: regular rhythm GI: GI Palp: Yes Soft to palpation Extrem: General: normal to inspection Assessment and Plan Assessment and plan (1) Term : Code(s): Z34.90 - Encounter for supervision of normal , unspecified, unspecified trimester Status: Acute Additional Plan Here for induction of labor- GBS neg SVE /-3 AROM clear FHT category 1
[2021-07-10] MEDS: fentaNYL CITRATE INJ (*CRX) 100 MCG/2 ML VIAL 50 MCG IV PUSH (08:51)
[2021-07-10 11:30] LABS: Rapid Plasma Reagin Non-Reactive (NonReactive)
--- NOTE | 2021-07-10 13:00 | P.PCNOB_ITS ---
OB - Delivery Note Procedure Delivery date: 07/10/21 Procedure: Induction method: AROM and Per Pitocin Protocol Delivery monitor: External FHT and External Uterine Route of delivery: Laceration Description: Perineal - 1st Degree Delivery repair: vicryl Quantitative Blood Loss (ml): 175 Anesthesia type: Epidural Disposition: Floor Narrative: With adequate expulsive efforts by the mother, the baby's head was delivered OA. The baby's anterior shoulder was delivered under the pubic symphysis without difficulty. The posterior shoulder and the rest of the baby delivered without difficulty. The infant was placed on the mothers chest and s uctioned and stimulated. The cord was clamped and cut after 30 seconds. Mother and baby both stable. Baby Date of : 07/10/21 Time of : 12:46 Weeks of gestation at delivery: 39 Infant gender: Female Weight (pounds): 7 Weight (ounces): 15 presentation: vertex Placenta delivery description: Spontaneous Cord Vessel Description: 3 Vessels and Delayed Cord Clamping score one minute: 9 score five minutes: 9
[2021-07-10] MEDS: OXYTOCIN 30 UNITS/NS 500 ML 30 UNITS/500 ML BAG 125 UNITS IV CONT (13:19)
--- NOTE | 2021-07-10 16:01 | PC.NURSE ---
Patient transferred to post room #286 per wheelchair from labor and delivery. Support person present. Oriented to unit, room, information board, rooming in, admission packet and security measures. Patient verbalizes understanding.
[2021-07-10] MEDS: POLYSACCHARIDE IRON COMPLEX 150 MG CAPSULE PO (21:20)
[2021-07-11] VITALS: BP 121/85; PULSE 64; RESP 14; TEMP 36.9; O2SAT 98
[2021-07-11] MEDS: IBUPROFEN 600 MG TABLET PO ×2 (00:29→08:21)
[2021-07-11 04:00] VITALS: BP 126/81; PULSE 60; RESP 16; TEMP 36.7; O2SAT 100
[2021-07-11 05:07] LABS: Hematocrit 26.9 % (37.0-47.0); Hemoglobin 8.5 g/dL (12.0-15.0)
--- NOTE | 2021-07-11 06:53 | PM.OBPNVD ---
OB - PN: Subj Subjective Date/time seen: 07/11/21 06:53 Patient comments: no complaints baby status: doing well OB - PN: Obj Data Labs CBC & Chem 7: 07/11/21 04:03 Labs: Laboratory Results - last 24 hr 07/10/21 07/10/21 07/10/21 07:15 07:15 07:15 WBC 9.8 RBC 3.61 L Hgb 9.7 L Hct 30.3 L MCV 83.9 MCH 26.9 MCHC 32.0 RDW 15.2 H Plt Count 229 MPV 12.2 H Immature Gran % (Auto) 1.1 H Neut % (Auto) 63.2 Lymph % (Auto) 28.2 [place] % (Auto) 6.2 Eos % (Auto) 0.9 Baso % (Auto) 0.4 Lymph # (Auto) 2.76 [place] # (Auto) 0.6 Eos # (Auto) 0.1 Baso # (Auto) 0.0 Abs Immat Gran (auto) 0.11 H Absolute Neuts (auto) 6.2 Absolute Nucleated RBC 0.0 Nucleated RBC % 0.0 RPR Non-reactive Blood Type A Positive Antibody Screen Negative 07/11/21 04:03 WBC RBC Hgb 8.5 L Hct 26.9 L MCV MCH MCHC RDW Plt Count MPV Immature Gran % (Auto) Neut % (Auto) Lymph % (Auto) [place] % (Auto) Eos % (Auto) Baso % (Auto) Lymph # (Auto) [place] # (Auto) Eos # (Auto) Baso # (Auto) Abs Immat Gran (auto) Absolute Neuts (auto) Absolute Nucleated RBC Nucleated RBC % RPR Blood Type Antibody Screen OB - PN A/P Plan day: 1 Plan: routine care and discharge home Time Spent With Patient Time: Total time spent is greater than 50% in coordination of care (as documented) at patient's floor/unit and/or counseling patient: Review of Systems Review of Systems: All systems reviewed & are unremarkable except as noted in HPI and below Exam Const: General: cooperative, healthy appearing, comfortable and no acute distress
[2021-07-11 07:35] VITALS: BP 110/60; PULSE 84; RESP 18; TEMP 36.4; O2SAT 99
[2021-07-11] MEDS: BENZOCAINE 20% AER SPR (*SP) 56 GM CAN 1 SPRAY TOPICAL (08:21)
[2021-07-11] MEDS: DOCUSATE SODIUM 100 MG CAPSULE PO (08:21)
[2021-07-11] MEDS: WITCH HAZEL 40 PADS 1 PAD TOPICAL (08:21)
[2021-07-11] MEDS: POLYSACCHARIDE IRON COMPLEX 150 MG CAPSULE PO (08:22)
[2021-07-11 12:00] VITALS: BP 102/58; PULSE 70; RESP 20; TEMP 36.8
--- NOTE | 2021-07-11 12:43 | WPDANLDPN2 ---
Anes-Prog Note L&D Date/Time: 07/11/21 12:43 Comfortable throughout: labor and delivery Neuraxial method: epidural Epidural/Spinal procedure site: clean & non-tender Neuro status: Neuro function grossly intact. Cardiovascular status: normal Respiratory status: normal Airway patency: baseline Mental status: baseline Post-Op hydration status: normal Vital Signs: Last Vital Signs Temp 36.8 C 07/11/21 12:00 Pulse 70 07/11/21 12:00 Resp 20 07/11/21 12:00 BP 102/58 L 07/11/21 12:00 Pulse Ox 99 07/11/21 07:35 Pain score (VAS): 05/04 I/O: Intake & Output 07/10/21 07/11/21 07/11/21 23:59 07:59 15:59 Intake Total 620 Balance 620 Post-procedural complaints: none Patient feedback: Patient satisfied with anesthetic care.
--- NOTE | 2021-07-15 06:46 | PM.OBDSVD ---
DS: Admitting Diagnosis Discharge Date 07/11/21 Admitting Diagnosis iol OB - DS: Summary OB Procedures : None OB Procedures Intrapartum: Spontaneous Vag Delivery OB Procedures: : None Time Spent with Patient Time attestation: Total time spent providing and/or coordinating discharge services: Discharge Plan Discharge Attending physician on discharge: Bienvenido Ulloa Consulting providers: Radha Serrano Discharging Clinician: Radha Serrano Patient Disposition: Home, Self-Care Activity: pelvic rest Diet: regular Discharge Instructions: Education: Mom and Baby Guide Given to: Mother Follow-Up: Call your delivering provider's office for an appointment to be seen in: 6 Weeks Mom and baby should come to the [facility] for the follow-up appointment. Appointment Date/Time: Tuesday, July 13, 2021 at 8:00 am What to expect at your follow-up visit: Blood Pressure Check Physical Assessment Call [phone] if you are unable to keep your appointment time. BREAST CARE: * Wear a snug supportive bra. * For engorgement discomfort: Breast Feeding: * Apply warm moist washcloths * Express milk as needed to relieve engorgement * Wear loose clothing Bottle Feeding: * May apply ice packs * For sore nipples: * Identify correct latch-on * Apply warm moist washcloths before and after nursing * Air dry nipples after nursing * May apply Lansinoh cream to nipples EPISIOTOMY/PERINEAL CARE: * Until bleeding stops, use your shlomo bottle after urinating * Change your pad frequently throughout the day * You may take sitz baths several times a day (fill your bathtub with warm water and soak for 20 minutes.) Do NOT bathe in the water ACTIVITY: * Rest as much as possible. * Do not exercise or lift anything heavier than your baby (such as laundry or other children.) * Avoid stairs or driving as much as possible. * Do not put anything into the vagina. No douching, tampons, or sexual activity until seen by physician. NOTIFY PHYSICIAN IF YOU HAVE ANY QUESTIONS OR IF ANY OF THE FOLLOWING SYMPTOMS OCCUR: * If your episiotomy or incision becomes red, swollen, or more painful than what you have experienced in the hospital. * If your vaginal bleeding becomes foul smelling. * If your vaginal bleeding becomes more heavy than a period or if your bleeding changes from pink to bright red. However, you may pass an occasional walnut-sized clot once or twice for the first week . * If you experience a sharp, shooting pain in you calves. * If you discover a hard, reddened area on your breast or if you experience flu-like symptoms. DIET: * Eat regular, well-balanced meals. * Drink plenty of fluids daily. If , drink to thirst. Patient Instructions: Antibiotic Form Stand Alone Forms: General Discharge Information Follow-up/Referrals: Ayleen Alves MD [Physician] - 4 Weeks Discharge Medications: Continued Daily [id number] mg-mcg-mg Combo Pack 1 pkg PO DAILY RF: 0 ferrous sulfate 325 mg BYMOUTH BID RF: 0 Date of admission: 07/10/21 06:29 Primary Care Provider: Allan,Carlos Maldonado Admitting Provider: Ayleen Alves Attending physician on admission: Ayleen Alves Condition: Stable
== END 2021-07-11 14:40 | disposition home or self-care (01) | DRG 807 ==
LOC: ANHLDR 06:33 → ANHOB2 16:22
PROVIDERS: Admitting Provider Obstetrics & Gynecology; PCP Internal Medicine; Visit Provider Obstetrics & Gynecology
DX: O40.3XX0 Polyhydramnios, third trimester, not applicable or unspecified (principal); Z37.0 Single live birth; Z3A.39 39 weeks gestation of pregnancy; O36.8330 Maternal care for abnormalities of the fetal heart rate or rhythm, third trimester, not applicable or unspecified; O70.0 First degree perineal laceration during delivery; O24.429 Gestational diabetes mellitus in childbirth, unspecified control; O13.4 Gestational [pregnancy-induced] hypertension without significant proteinuria, complicating childbirth
CPT/HCPCS: 36415; 85014; 85018; 85025; 86592; 86850; 86900; 86901; A9270; J2590; J2795; J3010; J7120

== ENCOUNTER 2024-10-12 18:55 | Outpatient (CLI) | payer BC, SELFPAY ==
[2024-10-12 19:00] VITALS: BP 122/72; PULSE 89
[2024-10-12 19:48] VITALS: TEMP 36.1
--- NOTE | 2024-10-12 20:54 | PC.NURSE ---
1854-Patient arrived to OB unit with complaints of leaking. Patient states she felt the leaking start at 1820 and that it was just a small amount and clear. Patient denies feeling contractions, but that she feels back pain occasionally. Patient is a with an EDC of 11/03/24. Patient states she has had no complications this . Patient denies vaginal bleeding and patient has positive movement. 1858- RN notified CNM of patient arrival and patient complaints. CNM gave orders to do a ROM plus. 1941- RN notified CNM of ROM plus being negative and that patient requested a cervical exam. CNM gave orders to do a cervical exam. 1947- RN notified CNM of cervical exam. CNM gave orders to d/c patient, but that if patient would like to stay and be observed, she can. 1949- RN at bedside. RN gave patient the option to stay if she would like to be monitored. Patient would like to go home. RN gave patient handouts and d/c instructions. Patient verbalizes understanding.
[2024-10-12 20:55] LABS: OBXCEM ROM Plus Negative (Negative)
== END 2024-10-12 20:00 | disposition home or self-care (01) ==
LOC: ANHOBOP 19:47 → ANHLDR 21:12
PROVIDERS: PCP Internal Medicine; Visit Provider Advanced Practice Midwife
DX: O41.8X90 Other specified disorders of amniotic fluid and membranes, unspecified trimester, not applicable or unspecified (principal)
CPT/HCPCS: 59025; 84112; 99199

== ENCOUNTER 2024-10-21 11:36 | Outpatient (RCR) | payer BC, SELFPAY ==
[2024-10-21 13:04] VITALS: BP 123/78; PULSE 72
== END 2025-01-19 23:59 | disposition home or self-care (01) ==
LOC: ANHOBOP 11:36
PROVIDERS: PCP Internal Medicine; Visit Provider Obstetrics & Gynecology
DX: O36.8190 Decreased fetal movements, unspecified trimester, not applicable or unspecified (principal); Z3A.38 38 weeks gestation of pregnancy
CPT/HCPCS: 59025

== ENCOUNTER 2024-10-27 04:59 | Inpatient (IN) | payer BC, SELFPAY ==
[2024-10-27] VITALS (147 sets, daily range): BP systolic 100–169; BP diastolic 48–96; PULSE 57–212; RESP 16–18; TEMP 36.3–36.8; O2SAT 94–100; BMI 31.6
--- OUTSIDE RECORDS SUMMARY | 2024-10-27 05:04 | XMS_ITS | Data Portability ---
Author Organization [facility] [place] Address [address] [place] [address] Assessment Encounter Date Assessment Date Assessment LastModified by Organization Details LastModified Time 09/26/2024 09/26/2024 Patient is _34__weeks . Discussed plan. Not available 09/26/2024 11:40:30 10/10/2024 10/10/2024 Patient is 36___weeks . Discussed plan. [email or web address] Not available 10/10/2024 13:48:55 10/17/2024 10/17/2024 Patient is _37__weeks . Discussed plan. Not available 10/17/2024 10:41:48 10/24/2024 10/24/2024 NST decreased FM [email or web address] Not available 10/24/2024 18:45:17 10/24/2024 10/24/2024 Patient is _38__weeks . Discussed plan. [email or web address] Not available 10/24/2024 11:17:08 Plan of Treatment Reminders Order Date Submit Date Provider Last Modified By Organization Details Last Modified Time Details Appointments INDUCTION 2024 05:00A Danyelle NIXON MD Not available Not available Not available Lab streptoco ccus group B, culture, unspecifi ed specimen 2024 025 [facility] (Lab), [address], [place], [address], 10/14/2024 15:46:21 Referral None recorded. Procedures None recorded. Surgeries None recorded. Imaging non-stres s test 2024 025 [email or web address] [place], [address], [address], [place], [address], 10/24/2024 18:48:13 Medication Orders None recorded. Patient TargetsNo targets recorded. Patient InstructionsNo instructions recorded. Reason for Referral None Reported. Results Created Date Observation Date Name Description Value Unit Range Abnormal Flag Note LastModifiedBy Organization Detail LastModifiedTime 10/11/1910/10/2024 CULTU RE: GROUP B STREP SCREE N, REFLE X SUSCE PTIBI LITY result report SEE RESULT S BELOW abnormal Test: Cultu re: Group B Strep , Refle x Susce ptibi lity ([facility]/ [facility] ) Speci men Sourc e: Vagin a/Rec arvind Speci men Type: Vagin al/Re ctal Speci men Date: 2024 1049 Resul t Date: 2024 1443 Resul t Statu s: Final resul t Abnor mal: Yes Resul ting Lab: [facility] [address] [facility] [facility] [address] Tel: CULTU RE ----- ----- ----- --- Posit bryan for Strep tococ cus agala ctiae (Grou p B) (Abno rmal) Clind amyci n = resis tant, eryth romyc in = resis tant. Cefaz chandler may be used for intra partu m proph ylaxi s in penic illin -tracy rgic women at low risk, and Vanco mycin is recom paulette d for women at high risk for anaph ylaxi s. Susce ptibi lity testi ng is not neces courtney for these drugs . Not Available [facility] (Lab) [address], [place], [address], 10/14/2024 15:46:21 09/13/19 25 09/12/2024 US, obste tric, follo w-up No observ ation record ed. [email or web address] [place] [address], [place], [address], 09/12/2024 11:34:58 09/13/19 25 09/12/2024 US, obste tric, follo w-up No observ ation record ed. [email or web address] [address], [place], [address], 09/12/2024 13:39:12 10/13/19 25 10/12/2024 non-s tress test No observ ation record ed. [address], [place], [address], 10/16/2024 11:23:39 10/25/19 25 10/24/2024 non-s tress test No observ ation record ed. [email or web address] [place] [address], [place], [address], 10/24/2024 18:48:13 Result Notes None recorded. Problems Name Problem SNOMED Code Status Onset Date Resolution Date Notes Provider Name and Address Organization Details Recorded Time Gestatio nal diabetes mellitus 73894136 Completed 2019 antenata l testing schedule d Nima Neal [facility] 0 14:59:55 Painful uterine contract ions 853007197 Completed Procardi a, antenata l steroids , changed to 60 mg XL b.i.d. Nima Neal [facility] 0 14:59:55 Pregnanc y-induce d hyperten gerald 43426041 Completed Deliver ar 37 wks Nima Neal [facility] 0 14:59:55 Secondar y amenorrh ea 434746985 Completed 201912/09/2020 Secondar y amenorrh ea;Pract ice ID: 0001 Veena clifford [facility] 1 10:44:[address] Concept Completed 201812/09/2020 Encntr for technical applications scientist exam (general ) (routine ) w/o abn findings ;Practic e ID: 0001 Veena clifford [facility] 10:44:59 Pregnanc y test negative 462137165 Completed 201512/09/2020 Encounte r for pregnanc y test, result negative ;Practic e ID: 0001 Veena clifford [facility] 10:44:49 Venereal disease screenin g Completed 201405/12/2020 Screenin g examinat ion for venereal disease; Practice ID: 0001 David Ulloa MD [address], [place], [address], [facility] 10:52:41 Speciali zed medical examinat ion Completed 201412/09/2020 Other specifie d chlamydi al diseases ;Practic e ID: 0001 Veena clifford [facility] 10:45:11 Speciali zed medical examinat ion Completed 201412/09/2020 Routine gynecolo gical examinat ion;Prac mirza ID: 0001 Veena Wallace [facility] 10:45:13 Hemorrha gic complica tion of pregnanc y 068900360 Completed 201912/09/2020 Other hemorrha ge in early pregnanc y;Record ed Elsewher e: No [facility] S ource: EHR Supervisor Telephone Information shaun: N Practi ce ID: 0001 James lable Time: 03:15:00 PM Veena clifford [facility] 10:44:42 Syphilis test finding 082385584 Completed 201512/09/2020 Encntr screen for infectio ns w sexl mode of transmis s;Record ed Elsewher e: No [facility] S ource: EHR Supervisor Telephone Information shaun: N Practi ce ID: 0001 James lable Time: 12:00:00 PM Veena clifford, [facility] 1 10:45:04 Antenata l screenin g Completed 201912/09/2020 Encounte r for antenata l screenin g for nuchal transluc ency;Rec orded Elsewher e: No Locat ion: [facility] [address] S ource: EHR Supervisor Telephone Information shaun: N Practi ce ID: 0001 James lable Time: 03:15:00 PM Veena clifford, [facility] 1 10:44:46 Gestatio n period, 8 weeks 73813809 Completed 201912/09/2020 8 weeks gestatio n of pregnanc y;Record ed Elsewher e: No Locat ion: [facility] [address] S ource: EHR Supervisor Telephone Information shaun: N Practi ce ID: 0001 James lable Time: 03:15:00 PM Veena clifford, [facility] 10:44:[address] Concept Completed 201512/09/2020 Encntr for general adult medical exam w/o abnormal findings ;Recorde d Elsewher e: No Locat ion: [facility] [address] S ource: EHR Supervisor Telephone Information shaun: N Practi ce ID: 0001 James lable Time: 12:00:00 PM Veena clifford, [facility] 1 10:44:54 Infectio n screenin g Completed 201512/09/2020 Encounte r for screenin g for oth infec/pa rastc diseases ;Recorde d Elsewher e: No Locat ion: [facility] [address] S ource: EHR Supervisor Telephone Information shaun: N Practi ce ID: 0001 James lable Time: 12:00:00 PM Veena clifford [facility] 1 10:44:48 Screenin g for malignan t neoplasm of cervix Completed 201512/09/2020 Encounte r for screenin g for malignan t neoplasm of cervix;R ecorded Elsewher e: No Locat ion: [facility] [address] S ource: EHR Supervisor Telephone Information shaun: N Practi ce ID: 0001 James lable Time: 12:00:00 PM Veena Rodrigo darrin, [facility] 1 10:44:45 Pregnanc y, childbir th and puerperi um finding Completed 201912/09/2020 Encntr for suprvsn of normal first preg, second trimeste r;Record ed Elsewher e: No Locat ion: [facility] [address] S ource: EHR Supervisor Telephone Information shaun: N Practi ce ID: 0001 James lable Time: 03:45:00 PM Veena Rodrigo clifford, [facility] 1 10:44:57 Pregnanc y detectio n examinat ion Completed 201912/09/2020 Encounte r for pregnanc y test, result positive ;Recorde d Elsewher e: No Locat ion: [facility] [address] S ource: EHR Supervisor Telephone Information shaun: N Erynti ce ID: 0001 James lable Time: 03:45:00 PM Veena Rodrigo clifford, [facility] 1 10:45:10 Pregnanc y 95829831 Completed 202007/23/2021 Dionne clifford, [facility] 5 12:05:11 Chronic hyperten gerald complica ting AND/OR reason for care during pregnanc y 16658628 Completed 202004/29/2021 Ayleen Alves MD [address], [place], [address], [place] [facility] 2 09:59:45 Chronic hyperten gerald complica ting AND/OR reason for care during pregnanc y 05493391 Completed 2020 Ayleen Alves MD [address], [place], [address], [facility] 2 09:58:53 Past pregnanc y history of gestatio nal diabetes mellitus 541881605 Active 2020 Failed early 1 hr, but passed 3hr. passed 2hr at 28w Brandi heath null, [facility] 2 12:16:22 Past pregnanc y history of gestatio nal diabetes mellitus 268739157 Completed 2020 Failed early 1 hr, but passed 3hr. passed 2hr at 28w Brandi clifford, [facility] 2 12:16:22 Past pregnanc y history of pre-ecla mpsia 0490744676 92997 Completed 2020 ASA, baseline PIH labs Brandi heath null, [facility] 2 12:16:21 Past pregnanc y history of pre-ecla mpsia 0442054962 39261 Active x2; 162mg ASA; baseline labs wnl JOAN NIXON MD [address], [place], [address], [facility] 5 11:52:22 Prediabe amber 918166193 Active 2020 Ayleen Alves MD [address], [place], [address], [facility] 1 09:08:13 Elevated blood-pr essure reading without diagnosi s of hyperten gerald 766096418 Completed [facility] ne- 130s/80- no antenata l testing needed. Brandi clifford, [facility] 2 12:16:21 Elevated blood-pr essure reading without diagnosi s of hyperten gerald 453309672 Active [facility] ne- 130s/80- no antenata l testing needed. Brandi Jung ivana clifford, [facility] 2 12:16:21 Polyhydr amnios 04342372 Completed 202106/24/21 FIDE 28.9. Wkly 10pt testing. A1C pending. Brandi Hernandesjosejoey ivana clifford, [facility] 2 12:16:22 Polyhydr amnios 87596387 Active 202106/24/21 FIDE 28.9. Wkly 10pt testing. A1C pending. Brandi Hernandeselvi clifford, [facility] 2 12:16:22 Pregnanc y 31866531 Active 2024 Dionne clifford, [facility] 5 12:05:11 Past pregnanc y history of pre-ecla mpsia 4427365760 76761 Active x2; 162mg ASA; baseline labs wnl JOAN NIXON MD [address], [place], [address], [facility] 5 11:52:21 Anemia 112048014 Active 2024 Drea clifford, [facility] 5 11:06:26 Anemia 977453512 Active 2024 Drea clifford, [facility] 5 11:06:26 Pregnanc y 96347791 Completed 201902/18/2020 Dionne clifford [facility] 5 12:05:11 Problem Notes None recorded. Procedures Surgical History Date Name Laterality Status Provider Name and Address Organization Details Recorded Time 03/27/20 24 Date of Last Pap Smear completed Dionne Kuhn [facility] 04/26/2024 12:12:37 04/25/19 16 excision of recurrent ganglion cyst of wrist completed [facility] 09/19/2019 12:56:50 04/25/19 13 extraction of wisdom tooth completed [facility] 07/17/2024 11:20:38 04/25/19 12 procedure on ear completed [facility] 09/19/2019 12:58:03 04/25/19 04 myringotomy with tubes discharge education completed [facility] 09/19/2019 12:57:31 Imaging Results None recorded. Procedure Notes None recorded. Medical Equipment None Reported. Allergies No known drug allergies Medications Name Sig Start Date Stop Date Status Note LastModified by Organization Details LastModified Time Procardia XL 30 mg tablet,exte nded release Take 1 tablet twice a day by oral route. 02/17 completed Not Available Not Available Not Available prednisone 20 mg tablet TAKE 3 TABLETS BY MOUTH EVERY DAY FOR 5 DAYS 03/27 completed Not Available Not Available Not Available ofloxacin 0.3 % ear drops INSTILL 5 DROPS INTO RIGHT EAR TWICE DAILY FOR 7 DAYS 12/09 completed Not Available Not Available Not Available amoxicillin 875 mg tablet TAKE 1 TABLET BY MOUTH EVERY 12 HOURS FOR 10 DAYS 03/27 completed Not Available Not Available Not Available scopolamine 1 mg over 3 days transdermal patch APPLY 1 PATCH TOPICALLY TO THE SKIN EVERY 72 HOURS 03/27 completed Not Available Not Available Not Available Slow Fe active Not Available Not Avail able Not Available active Not Available Not Avai lable Not Available Baby Aspirin active Not Available Not Available Not Available One A Day Women's DHA 08/17 completed Not Available Not Available Not Available Blisovi Fe 05/14 (28) 1 mg-20 mcg (21)/75 mg (7) tablet TAKE 1 TABLET BY MOUTH EVERY DAY 03/27 completed Not Available Not Available Not Available OneTouch Ultra Blue Test Strip USE TO TEST BLOOD SUGAR FOUR TIMES DAILY 02/17 completed Not Available Not Available Not Available OneTouch Delica Plus Lancet 33 gauge active Not Available Not Available Not Available Vitals Date Recorded Body height Body mass index (BMI) Body weight Systolic And Diastolic Provider Name and Address Organization Details Last Updated DateTime 09/26/2024 162.56 cm 32.1 kg/m2 50748.77 g 122/79 mm[Hg] Drea Aguilera [facility] 09/26/2024 10:52:17 Date Recorded Body height Body mass index (BMI) Body weight Systolic And Diastolic Provider Name and Address Organization Details Last Updated DateTime 10/10/2024 162.56 cm 32.3 kg/m2 52834.37 g 126/80 mm[Hg] Drea Aguilera [facility] 10/10/2024 11:09:38 Date Recorded Body height Body mass index (BMI) Body weight Systolic And Diastolic Provider Name and Address Organization Details Last Updated DateTime 10/17/2024 162.56 cm 32.6 kg/m2 67172.55 g 132/81 mm[Hg] Liseth Christian [facility] 10/17/2024 10:32:54 Date Recorded Body weight Systolic And Diastolic Provider Name and Address Organization Details Last Updated DateTime 10/24/2024 23575.17584 g 127/79 mm[Hg] Yasmeen Thomas [facility] 10/24/2024 11:06:34 Social History Question Answer Notes LastModified by Organizat ion Details LastModified Time Tobacco Smoking Status Never Smoker Danyelle Renaldo clifford [facility] 07/08/2021 12:41:35 Do You Have An Advance Directive? No Information n ot available 12/09/2020 If You Are , What Was Your Level Of Alcohol Consumption Prior To ? Occasional [email or web address] Information not available 07/17/2024 How Many Years Have You Consumed Alcohol? 4 [email or web address] Information not available 03/27/2024 Are You Blind Or Do You Have Difficulty Seeing? No [email or web address] Information n ot available 12/09/2020 What Is Your Level Of Caffeine Consumption? Occasional Information not available 05/12/2020 In The 14 Days Before Symptom Onset, Have You Had Close Contact With A Laboratory-confirm ed COVID-19 While That Case Was Ill? No [email or web address] Information n ot available 12/09/2020 In The 14 Days Before Symptom Onset, Have You Had Close Contact With A Person Who Is Under Investigation For COVID-19 While That Person Was Ill? No [email or web address] Information not available 12/09/2020 Have You Been To An Area Known To Be High Risk For COVID-19? No Information not available 12/09/2020 Are You Deaf Or Do You Have Serious Difficulty Hearing? No Information not available 12/09/2020 What Is The Highest Grade Or Level Of School You Have Completed Or The Highest Degree You Have Received? [id number] [email or web address] Information not available 12/09/2020 How Many Days Of Moderate To Strenuous Exercise, Like A Brisk Walk, Did You Do In The Last 7 Days? 0 Information not available 05/12/2020 Are There Any Guns Present In Your Home? No Information not available 12/09/2020 What Was The Date Of Your Most Recent Tobacco Screening? 10/10/2024 [email or web address] Information not available 10/10/2024 Have You Ever Been Counseled For Unhealthy Alcohol Use? No [email or web address] Information not available 07/08/2021 Do You Use Protection During Sex? No Information not available 02/26/2021 Do You Use Your Seat Belt Or Car Seat Routinely? Yes [email or web address] Information not available 12/09/2020 Are You Sexually Active? Yes [email or web address] Information not available 05/23/2024 Do You Have Smoke And Carbon Monoxide Detectors In Your Home? Yes Information not available 12/09/2020 How Much Tobacco Do You Smoke? No [email or web address] Information not available 09/19/2019 Do You Use Sunscreen Routinely? Yes [email or web address] Information not available 12/09/2020 Has Tobacco Cessation Counseling Been Provided? No [email or web address] Information not available 07/08/2021 Have You Used IV Drugs? No [email or web address] Information not available 12/09/2020 Do You Have Difficulty Walking Or Climbing Stairs? No [email or web address] Information not available 06/19/2024 How Many Days In The Past Year Have You Consumed 4 Or More Drinks? 4 Information not available 07/08/2021 Sex: Unknown Functional Status Question Answer Note LastModified by Organizat ion Details LastModified Time Do you use any illicit or recreational drugs? No Information not available 05/12/2020 Do you or have you ever used any other forms of tobacco or nicotine? No Information not available 07/08/2021 What is your level of alcohol consumption? None [email or web address] Information not available 07/17/2024 Do you or have you ever used smokeless tobacco? Never used smokeless tobacco [email or web address] Information not available 07/08/2021 Are you currently employed? Yes [email or web address] Information not available 05/23/2024 Are you able to walk? YESWOREST [email or web address] Information not available 12/09/2020 Are you able to care for yourself? 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 No [email or web address] Information not available 06/19/2024 Do you or have you ever used e-cigarettes or vape? Never used electronic cigarettes [email or web address] Information not available 07/08/2021 What is your exercise level? None Information not available 05/12/2020 Mental Status Question Answer Note LastModified by Organization D etails LastModified Time Do you feel stressed (tense, restless, nervous, or anxious, or unable to sleep at night)? [id number] [email or web address] Information not available 12/09/2020 Family History Relationship Description Onset Age of this Age Resolved Age Notes LastModified by Organization Details LastModified Time Maternal Grandfather Diabetes mellitus [email or web address] Not available 2019 10:49:30 Paternal Aunt Malignant tumor of breast [email or web address] Not available 09/19 13:02:54 Medical History Condition Response Other N Blood Transfusion N Dermatologic Disorders N Gestational Diabetes Y Anxiety Disorder N Autoimmune disease N Arthritis N Polyps N Infertility N Acid Reflux (GERD) N Cancer N Varicosities N Stroke N Neurologic/Epilepsy Y Fibromyalgia N Headaches N Kidney Disease N Heart Problems N Kidney or Bladder Problems N Eating Disorder N Art (IVF or FET) N Hepatitis/Liver Disease N No Past Medical History N Urinary Tract Infection N Asthma N Trauma/Violence N Thrombophilias N Allergies (Food, seasonal, environmental ) N Breast Cancer N Drug/Latex Allergies/Reactions N Lung Disease N Defects or Inherited Disease N Breast Problem N Hematologic disorders N Anesthesia Complications N History of STI N Deep Vein Thrombosis N Polycystic ovary syndrome N History of abnormal pap N Endometriosis N High Cholesterol N Thyroid Problems N GI Problems N Anemia Y Psychiatric Illness N Ovarian Cancer N Diabetes Y Pulmonary (TB, Asthma) N Eczema N Abuse/Domestic Violence N Depression/ depression N Heart Disease N Pre-Eclampsia Y Hypertension Y Osteoporosis N Gynecological History Statement/Question Response Date of Last Mammogram Flow Moderate Date of LMP 01/28/2024 N Was last menstrual period normal Y STIs/STDs N Date of Last Colonoscopy Abnormal Pap N On BCP's at Conception? N HPV Vaccine N Duration of Flow (days) 6 Current Control Method Age at First Child 24 Are cycles usually normal Y Frequency of Cycle (Q days) 29 Sexually Active? Y Menses Monthly Y Date of DEXA bone scan Age of first menstrual cycle 15 Date of Last Pap Smear 03/27/2024 Sexual Problems? N LMP Definite N Obstetrics History GPAL:G 3 P 2 0 0 2 Type Value Full Term 2 Living 2 Total 3 Past Encounters Encounter ID Performer Location Encounter Start Date Encounter Closed Date Diagnosis/Indication Diagnosis SNOMED-CT Code Diagnosis ICD10 Code Diagnosis Note [id number] David Ulloa MD [place] [address],[facility] [place] [address] 08/21/2019 16:08:38 08/22/2019 13:45:35 [id number] MD Silvia Espinoza [address],[facility] [place] [address] 08/21/2019 16:10:15 08/22/2019 13:34:30 [id number] MD Silvia Espinoza [address],[place] [address] 08/23/2019 10:16:16 08/23/2019 11:19:54 Routine care 651107682 Z34.02 [id number] MD Silvia Espinoza [address],[place] [address] 09/19/2019 11:28:28 09/19/2019 13:51:49 screening for malformation 367249692 Z36.3 [id number] Radha Serrano [facility] [address],[place] [address] 09/19/2019 11:29:15 09/19/2019 13:49:30 Routine care 013174299 Z34.92 [id number] April Rudd [facility] [address],[place] [address] 10/29/2019 17:14:03 10/29/2019 17:42:19 Routine care 554865182 Z34.92 [id number] David Ulloa MD [place] [address],[place] [address] 11/15/2019 09:25:34 11/15/2019 09:58:24 Routine care 105968921 Z34.02 [id number] Radha Serrano [facility] [address],[place] [address] 11/23/2019 10:02:47 11/23/2019 11:06:17 Gestational diabetes mellitus 02475121 O24.410 [id number] David Ulloa MD [place] [address],[place] [address] 11/26/2019 14:10:50 11/27/2019 15:15:44 [id number] David Ulloa MD [place] [address],[place] [address] 12/10/2019 14:24:45 12/10/2019 15:23:40 Gestational diabetes mellitus 08543386 O24.410 Z3A.31 [id number] David Ulloa MD [place] [address],[place] [address] 12/10/2019 14:25:03 12/10/2019 16:31:32 Routine care 952258800 Z34.02 [id number] David Ulloa MD [place] [address],[place] [address] 12/13/2019 13:57:53 12/13/2019 14:40:06 Gestational diabetes mellitus class A1 34683248 O24.410 [id number] David Ulloa MD [place] [address],[place] [address] 12/17/2019 13:55:57 12/17/2019 15:13:07 Gestational diabetes mellitus class A1 52826726 O24.410 [id number] David Ulloa MD [place] [address],[place] [address] 12/20/2019 13:27:26 12/20/2019 14:06:56 Painful uterine contractions 796599858 N85.8 [id number] David Ulloa MD [place] [address],[place] [address] 12/20/2019 13:27:45 12/20/2019 14:44:39 Gestational diabetes mellitus class A1 66623831 O24.410 [id number] David Ulloa MD [place] [address],[place] [address] 12/24/2019 13:54:08 12/24/2019 14:37:10 Gestational diabetes mellitus class A1 [id number] O24.410 [id number] David Ulloa MD [facility] [address],[place] [address] 12/24/2019 13:54:32 12/24/2019 15:28:29 Routine care [id number] Z34.02 [id number] David Ulloa MD [facility] [address],[place] [address] 12/27/2019 13:51:56 12/27/2019 14:36:27 Gestational diabetes mellitus class A1 [id number] O24.410 [id number] David Ulloa MD [place] [address],[place] [address] 12/28/2019 14:44:23 12/28/2019 15:40:35 Routine care [id number] Z34.02 [id number] [facility] [address],[place] [address] 01/03/2020 11:25:01 01/22/2020 16:30:32 [id number] David Ulola MD [place] [address],[place] [address] 01/03/2020 11:26:26 01/03/2020 12:23:43 Gestational diabetes mellitus class A1 [id number] O24.410 [id number] David Ulloa MD [place] [address],[place] [address] 01/07/2020 14:37:07 01/07/2020 15:11:02 Gestational diabetes mellitus 05413043 O24.410 O40.3XX0 Z3A.35 [id number] MD Silvia Espinoza [address],[place] [address] 01/07/2020 14:37:25 01/07/2020 15:55:22 Routine care [id number] Z34.02 [id number] MD Silvia Espinoza [address],[place] [address] 01/10/2020 13:59:35 01/10/2020 14:45:41 Gestational diabetes mellitus class A1 [id number] O24.410 MD Silvia Espinoza [address],[place] [address] 1 01/14/2020 15:00:42 01/14/2020 15:53:56 Gestational diabetes mellitus class A1 [id number] O24.410 MD Silvia Espinoza [address],[place] [address] 01/14/2020 15:01:32 01/14/2020 16:12:04 Polyhydramnios 04168394 O40.3XX0 Z3A.36 MD Silvia Espionza [address],[place] [address] 1 01/14/2020 15:01:49 01/14/2020 17:26:59 Routine care 241914382 Z34.02 [id number] MD Silvia Espinoza [address],[place] [address] 02/18/2020 11:44:39 02/18/2020 12:30:00 care [id number] Z39.2 [id number] David Ulloa MD [facility] [address],[place] [address] 05/12/2020 09:54:55 05/12/2020 11:01:06 Gynecologic examination 70612316 Z01.419 This patient is here for her annual exam. A thorough history was taken. A physical exam was performed. Age appropriat e routine health screening was ordered, performed, and discussed. Recommende d testing was ordered. She was asked to follow up in one year. She will be informed of any test results. Pap - today [id number] April Rudd CNM [facility] [address],[place] [address] 12/09/2020 14:19:09 12/09/2020 15:18:16 test positive [id number] Z32.01 Risk factors addressed: Tobacco Cessation, Safe Sexual Practices, environmen guanako, work hazards, travel restrictio ns, seat belt use.Eat a health well balanced diet, avoid alcohol, tobacco, and street drugs.Enga ge in daily low impact exercise, avoid temperatur e extremes, and cat, rodent, and bird feces.Avoi d travel to areas where zika virus is a concern.Of fered cf/sma/nip t. Desires all 3. Handouts given and discussed with patient.Ch ildbirth classes recommende d.New OB sheet given.Will start baby aspirin daily.Plan early diabetes screen.If previous , counseling .Pt verbalizes that she understand s the importance of above instructio ns.All questions were answered.P atient reminded to have annual well woman examinatio n and address preventati ve healthcare . [id number] David Ulloa MD [facility] [address],[place] [address] 12/09/2020 14:16:36 12/09/2020 14:45:06 [id number] Ayleen Alves MD [facility] [address],[place] [address] 01/06/2021 14:04:03 01/06/2021 15:46:29 screening [id number] Z36.82 [id number] Ayleen Alves MD [facility] [address],[place] [address] 01/06/2021 14:09:39 01/06/2021 15:47:07 Routine care 066027954 Z34.91 Past pregn cami history of pre-eclampsia [id number] 67729 Z87.59 Past pregn cami history of gestational diabetes mellitus 120414151 Z86.32 Chronic hy pertension complicating AND/OR reason for care during 40314337 O16.9 [id number] Ayleen Alves MD [facility] [address],[place] [address] 02/09/2021 10:34:28 02/09/2021 11:37:26 Routine care 673273122 Z34.91 Past pregn cami history of gestational diabetes mellitus 509700982 Z86.32 Chronic hy pertension complicating AND/OR reason for care during 47482803 O16.9 Past pregn cami history of pre-eclampsia [id number] 50433 Z87.59 [id number] David Ulloa MD [facility] [address],[place] [address] 02/26/2021 16:26:54 02/26/2021 17:34:25 screening for malformation 700840472 Z36.3 [id number] David Ulloa MD [facility] [address],[place] [address] 02/26/2021 16:27:24 02/27/2021 10:49:49 Routine care 036775196 Z34.02 [id number] David Ulloa MD [facility] [address],[place] [address] 03/30/2021 15:59:46 03/30/2021 16:32:47 Routine care 792719764 Z34.02 [id number] Ayleen Alves MD [facility] [address],[place] [address] 04/29/2021 09:45:36 04/29/2021 10:40:41 Elevated blood-pressure reading without diagnosis of hypertension 390277826 R03.0 Past pregn cami history of gestational diabetes mellitus 621837816 Z86.32 Past pregn cami history of pre-eclampsia [id number] 27931 Z87.59 [id number] MD Silvia Eller [address],[place] [address] 05/13/2021 14:12:43 05/13/2021 14:55:44 Routine care 829333058 Z34.91 [id number] Ayleen Alves MD [place] [address] [place] [address] 05/27/2021 13:48:08 05/27/2021 14:36:02 Past history of pre-eclampsia 9618740915 75018 Z87.59 Routine an tenatal care 225248115 Z34.91 [id number] Ayleen Alves MD [place] [address],[place] [address] 06/10/2021 14:06:31 06/10/2021 14:33:52 Routine care 672223582 Z34.91 Past pregn cami history of gestational diabetes mellitus 484944466 Z86.32 Past pregn cami history of pre-eclampsia 9698292618 83969 Z87.59 [id number] MD Mi [place] [address] [place] [address] 06/24/2021 14:13:42 06/24/2021 15:15:06 Uterine size for dates discrepancy 475562949 O26.843 Z3A.36 [id number] MD Silvia Eller [address] [place] [address] 06/24/2021 14:16:06 06/24/2021 17:08:53 Polyhydramnios 53923668 O40.3XX1 Elevated blood-pressure reading without diagnosis of hypertension 887620927 R03.0 [id number] MD Silvia Eller [address] [place] [address] 07/01/2021 12:25:07 07/01/2021 13:01:28 Polyhydramnios 88345781 O40.3XX0 Z3A.37 [id number] Ayleen Alves MD [facility] [address],[place] [address] 07/01/2021 12:25:33 07/01/2021 14:30:38 Polyhydramnios 74742994 O40.3XX0 Z3A.37 [id number] Ayleen Alves MD [place] [address],[place] [address] 07/01/2021 12:25:58 07/01/2021 14:38:36 Polyhydramnios 74551480 O40.3XX0 Z3A.37 [id number] Ayleen Alves MD [facility] [address],[place] [address] 1 07/08/2021 12:40:59 07/08/2021 13:55:49 Polyhydramnios 38642030 O40.3XX0 Z3A.37 [id number] Ayleen Alves MD [facility] [address],[place] [address] 07/08/2021 12:41:15 07/08/2021 14:40:21 Polyhydramnios 30593925 O40.3XX0 Z3A.37 [id number] Ayleen Alves MD [facility] [address],[place] [address] 1 07/08/2021 12:41:28 07/08/2021 14:40:31 Past history of pre-eclampsia 9935608217 20432 Z87.59 Polyhydramnios 61496995 O40.3XX0 Z3A.37 Routine an tenatal care 308608029 Z34.91 [id number] MD Silvia Eller [address],[place] [address] 08/17/2021 10:31:41 08/17/2021 11:09:28 care 796457749 Z39.2 Initial pr escription of oral contraception 265951547 Z30.011 [id number] Ayleen Alves MD [facility] [address],[place] [address] 10/16/2021 10:24:50 10/16/2021 11:24:35 Gynecologic examination 04946023 Z01.419 Surveillan ce of oral contraception 530849458 Z30.41 [id number] David Ulloa MD [facility] [address],[place] [address] 03/27/2024 11:20:18 03/27/2024 11:56:55 [id number] MD Silvia Espinoza [address],[place] [address] 03/27/2024 11:20:47 03/27/2024 13:10:57 Amenorrhea 39447472 N91.2 this patient is a 28-year-ol d female who presents for amenorrhea . She is a positive test. Ultrasound revealed a 1st trimester gestation. Patient has no complaints . We talked about early care. Talked about genetic screening. We talked about her ultrasound results. We talked about the 12 week ultrasound that has genetic screening components . She was given recommenda tions on exercise, diet, over-the-c ounter medication s. We reviewed her obstetric history. We reviewed her medical history. We reviewed her social history. She will begin routine care at her next visit. [id number] MD Silvia Espinoza [address],[place] [address] 04/26/2024 11:24:17 04/26/2024 12:09:32 screening 332577569 Z36.82 Z3A.13 [id number] MD Silvia OLIVA [address],[place] [address] 04/26/2024 11:24:34 04/26/2024 14:17:07 Routine care 245928426 Z34.91 Past pregn cami history of pre-eclampsia 3407540557 95635 Z87.59 Gestation period, 12 weeks 24756903 Z3A.12 [id number] MD Silvia OLIVA [address],[place] [address] 05/23/2024 11:33:04 05/23/2024 12:24:11 Past history of pre-eclampsia 2481034417 89825 Z87.59 - baseline labs wnl- 162mg ASA Gestation period, 16 weeks 82756393 Z3A.16 [id number] David Ulloa MD [facility] [address],[place] [address] 06/19/2024 13:52:42 06/19/2024 14:59:18 screening for malformation 039507006 Z36.3 Z3A.20 [id number] JOAN NIXON MD [place] [address],[place] [address] 06/19/2024 13:54:21 06/19/2024 15:34:36 Routine care 593039672 Z34.91 [id number] Radha Serrano [facility] [address],[place] [address] 07/17/2024 10:39:59 07/17/2024 11:43:16 Gestation period, 24 weeks 236023328 Z3A.24 [id number] Radha Serrano [facility] [address],[place] [address] 07/17/2024 17:51:21 07/18/2024 05:21:09 bradycardia 044318481 O36.8399 [id number] Radha Serrano [facility] [address],[place] [address] 08/17/2024 09:27:40 08/17/2024 09:53:31 Gestation period, 28 weeks 49441774 Z3A.28 [id number] [facility] [address],[place] [address] 08/29/2024 10:38:03 08/29/2024 12:24:24 Gestation period, 30 weeks 11655698 Z3A.30 [id number] David Ulloa MD [place] [address],[place] [address] 09/12/2024 09:46:13 09/12/2024 10:44:49 Uterine size for dates discrepancy 941565486 O26.843 O09.293 Z3A.32 [id number] Radha Serrano [facility] [address],[place] [address] 09/12/2024 09:46:36 09/12/2024 10:48:41 Gestation period, 32 weeks 1494928 Z3A.32 [id number] Radha Serrano [facility] [address],[place] [address] 09/26/2024 10:30:51 09/26/2024 11:43:43 Gestation period, 34 weeks 29212372 Z3A.34 [id number] Radha Serrano [facility] [address],[place] [address] 10/10/2024 10:38:30 10/10/2024 14:03:00 screening 040723558 Z36.85 [id number] Radha Serrano [facility] [address],[place] [address] 10/17/2024 10:12:55 10/17/2024 10:42:48 Gestation period, 37 weeks 02063973 Z3A.37 [id number] Radha Serrano [place] [address],[place] [address] 10/24/2024 10:23:00 10/24/2024 11:29:06 Gestation period, 38 weeks 58525793 Z3A.38 [id number] JOAN NIXON MD [place] [address],[place] [address] 10/24/2024 18:32:40 10/25/2024 09:01:21 Reduced movement 443058544 O36.8130 Health Concerns Section Related Observation LastModified by Organization Detai ls LastModified Time None Recorded Concern Status LastModified by Organization Details LastModified Time None Recorded Advance Directives Directive N: Payers Insurance Date Sequence Insurance Name Policy Number Policy Solano Covered Member ID Solano Member ID Guarantor Name 10/23/2024 1 [place] [id number] [facility] [id number] [facility] 02/29/2024 1 [facility] [id number] Jose Angel Romano [id number] [facility] 05/08/2021 PAYMENT PLAN [facility] 06/29/2021 2 [facility] [id number] Jose Angel Romano [id number] [facility] OBGyn Episode Ob Episode Information Episode Created Date Number of Fetuses Patient Bloodtype Patient rh Status Prepregnancy Weight lbs Domestic Partner Domestic Partner Phone Father Name Sales Agent Food Vending Service Status 08/23/19 20 1 A Positive 174 CLOSED Fetus Data First Name Last Name Admitted to NICU Weight (g) Sex Living Outcome Pediatric Complications Fetus ID Race Codes Race Delivery Type Arabel la [phone] 6 F true Full Term delee 8cc @ delivery 973 Vaginal Delivery Problems Problem Notes Problem Name Start Date End Date Resolution Snomed Code Not e Painful uterine contractions [id number] Procardia, steroids, changed to 60 mg XL b.i.d. Gestational diabetes mellitus 11/19/2019 [id number] testi ng scheduled -induced hypertension [id number] Deliver ar 37 w ks Darren Calculation Initial Darren Date Initial Exam Date Initial Exam Provider Initial Ultrasound Date Last Menstrual Period Date Ultra Sound Weeks Gestation 02/06/2020 08/23/2019 07/02/2019 05/07/2019 8 Eighteen To Twenty Week Darren Update Ultra Sound Date Fundal Height At Umbil Quickening Date Ultra Sound Latest Weeks Gestation Final Darren Confirmed By Final Darren Confirmed Date Final Darren Date Ultra Sound Latest Days Gestation 0 [email or web address] 08/23/2019 02/06/20 20 0 Pre-sarah Flowsheet Flowsheet Date 08/21/2019 Funes Score Blood Edema Fundus Height Fundus Units Glucose Ketones Leukocytes Nitrite Labor Signs Protein Cervic Dilation Cervic Effacement Cervic Station Type Weight in lbs Pre/Post Dialysis Refused BP Diastolic BP Location Tested BP Systolic BP Type Fetus Heart Rate Present Fetus Movement Comments Flowsheet Date 08/23/2019 Funes Score Blood Edema Fundus Height Fundus Units Glucose Ketones Leukocytes Nitrite Labor Signs Protein Cervic Dilation Cervic Effacement Cervic Station 16 trace Type Weight in lbs Pre/Post Dialysis Refused Weight 166.663694898960 BP Diastolic BP Location Tested BP Systolic BP Type 81 135 Fetus Heart Rate Present A 153 Fetus Movement Comments Flowsheet Date 09/19/2019 Funes Score Blood Edema Fundus Height Fundus Units Glucose Ketones Leukocytes Nitrite Labor Signs Protein Cervic Dilation Cervic Effacement Cervic Station Type Weight in lbs Pre/Post Dialysis Refused BP Diastolic BP Location Tested BP Systolic BP Type Fetus Heart Rate Present Fetus Movement Comments Flowsheet Date 09/19/2019 Funes Score Blood Edema Fundus Height Fundus Units Glucose Ketones Leukocytes Nitrite Labor Signs Protein Cervic Dilation Cervic Effacement Cervic Station neg trace trace Type Weight in lbs Pre/Post Dialysis Refused Weight 171.534098392155 BP Diastolic BP Location Tested BP Systolic BP Type 79 122 Fetus Heart Rate Present Fetus Movement A No Comments anatomy complete, female, A rabellapatient states that having swelling Flowsheet Date 07/24/2019 Funes Score Blood Edema Fundus Height Fundus Units Glucose Ketones Leukocytes Nitrite Labor Signs Protein Cervic Dilation Cervic Effacement Cervic Station 12 Type Weight in lbs Pre/Post Dialysis Refused Weight 168.852511869621 BP Diastolic BP Location Tested BP Systolic BP Type 85 137 Fetus Heart Rate Present A 170 Present Fetus Movement A No Comments Flowsheet Date 07/02/2019 Funes Score Blood Edema Fundus Height Fundus Units Glucose Ketones Leukocytes Nitrite Labor Signs Protein Cervic Dilation Cervic Effacement Cervic Station Type Weight in lbs Pre/Post Dialysis Refused Weight 174.44056033227 BP Diastolic BP Location Tested BP Systolic BP Type 85 141 Fetus Heart Rate Present Fetus Movement Comments Flowsheet Date 10/29/2019 Funes Score Blood Edema Fundus Height Fundus Units Glucose Ketones Leukocytes Nitrite Labor Signs Protein Cervic Dilation Cervic Effacement Cervic Station 26 trace Type Weight in lbs Pre/Post Dialysis Refused Weight 181.690085459134 BP Diastolic BP Location Tested BP Systolic BP Type 85 L arm 143 sitting Fetus Heart Rate Present A 139 Fetus Movement A Yes Comments Acid reflux. Discussed use o f pepcid. RTC in 2 weeks for routine visit and 1 hour gtt. Flowsheet Date 11/15/2019 Funes Score Blood Edema Fundus Height Fundus Units Glucose Ketones Leukocytes Nitrite Labor Signs Protein Cervic Dilation Cervic Effacement Cervic Station 28 trace Type Weight in lbs Pre/Post Dialysis Refused Weight 181.189004401464 BP Diastolic BP Location Tested BP Systolic BP Type 85 133 Fetus Heart Rate Present A 145 Fetus Movement A Yes Comments Flowsheet Date 11/23/2019 Funes Score Blood Edema Fundus Height Fundus Units Glucose Ketones Leukocytes Nitrite Labor Signs Protein Cervic Dilation Cervic Effacement Cervic Station neg none trace Type Weight in lbs Pre/Post Dialysis Refused Weight 182.024610049828 BP Diastolic BP Location Tested BP Systolic BP Type 85 139 Fetus Heart Rate Present Fetus Movement A Yes Comments patient is here form diet te aching Flowsheet Date 11/26/2019 Funes Score Blood Edema Fundus Height Fundus Units Glucose Ketones Leukocytes Nitrite Labor Signs Protein Cervic Dilation Cervic Effacement Cervic Station 30 trace Type Weight in lbs Pre/Post Dialysis Refused Weight 180.904928128212 BP Diastolic BP Location Tested BP Systolic BP Type 82 132 Fetus Heart Rate Present A 140 Fetus Movement A Yes Comments Blood sugars reviewed and co nsider reasonable Flowsheet Date 12/10/2019 Funes Score Blood Edema Fundus Height Fundus Units Glucose Ketones Leukocytes Nitrite Labor Signs Protein Cervic Dilation Cervic Effacement Cervic Station Type Weight in lbs Pre/Post Dialysis Refused BP Diastolic BP Location Tested BP Systolic BP Type Fetus Heart Rate Present Fetus Movement Comments Flowsheet Date 12/10/2019 Funes Score Blood Edema Fundus Height Fundus Units Glucose Ketones Leukocytes Nitrite Labor Signs Protein Cervic Dilation Cervic Effacement Cervic Station 31 trace Type Weight in lbs Pre/Post Dialysis Refused Weight 178.027039947944 BP Diastolic BP Location Tested BP Systolic BP Type 78 127 Fetus Heart Rate Present A 145 Fetus Movement A Yes Comments Flowsheet Date 12/13/2019 Funes Score Blood Edema Fundus Height Fundus Units Glucose Ketones Leukocytes Nitrite Labor Signs Protein Cervic Dilation Cervic Effacement Cervic Station Type Weight in lbs Pre/Post Dialysis Refused BP Diastolic BP Location Tested BP Systolic BP Type Fetus Heart Rate Present Fetus Movement Comments Flowsheet Date 12/17/2019 Funes Score Blood Edema Fundus Height Fundus Units Glucose Ketones Leukocytes Nitrite Labor Signs Protein Cervic Dilation Cervic Effacement Cervic Station Type Weight in lbs Pre/Post Dialysis Refused BP Diastolic BP Location Tested BP Systolic BP Type Fetus Heart Rate Present Fetus Movement Comments Flowsheet Date 12/20/2019 Funes Score Blood Edema Fundus Height Fundus Units Glucose Ketones Leukocytes Nitrite Labor Signs Protein Cervic Dilation Cervic Effacement Cervic Station 33 1+ Type Weight in lbs Pre/Post Dialysis Refused Weight 176.345180231867 BP Diastolic BP Location Tested BP Systolic BP Type 91 150 Fetus Heart Rate Present A 145 Fetus Movement A Yes Comments patient reports persistent p ainful uterine contractions, to change / increase Procardia to 30 XL b.i.d.. Flowsheet Date 12/20/2019 Funes Score Blood Edema Fundus Height Fundus Units Glucose Ketones Leukocytes Nitrite Labor Signs Protein Cervic Dilation Cervic Effacement Cervic Station Type Weight in lbs Pre/Post Dialysis Refused BP Diastolic BP Location Tested BP Systolic BP Type Fetus Heart Rate Present Fetus Movement Comments Flowsheet Date 12/24/2019 Funes Score Blood Edema Fundus Height Fundus Units Glucose Ketones Leukocytes Nitrite Labor Signs Protein Cervic Dilation Cervic Effacement Cervic Station Type Weight in lbs Pre/Post Dialysis Refused BP Diastolic BP Location Tested BP Systolic BP Type Fetus Heart Rate Present Fetus Movement Comments Flowsheet Date 12/24/2019 Funes Score Blood Edema Fundus Height Fundus Units Glucose Ketones Leukocytes Nitrite Labor Signs Protein Cervic Dilation Cervic Effacement Cervic Station 33 trace Type Weight in lbs Pre/Post Dialysis Refused Weight 175.545394795871 BP Diastolic BP Location Tested BP Systolic BP Type 89 134 Fetus Heart Rate Present A 145 Fetus Movement A Yes Comments this patient is a 24-year-ol d 1 at 33 weeks and 5 days gestation with gestational hypertension gestational diabetes and premature uterine contractions. She is on 60 mg of Procardia XL a, she has diet-controlled gestational diabetic, she has gestational hypertension. We discussed delivery at 37 weeks. She was given preeclampsia precautions Flowsheet Date 12/27/2019 Funes Score Blood Edema Fundus Height Fundus Units Glucose Ketones Leukocytes Nitrite Labor Signs Protein Cervic Dilation Cervic Effacement Cervic Station Type Weight in lbs Pre/Post Dialysis Refused BP Diastolic BP Location Tested BP Systolic BP Type Fetus Heart Rate Present Fetus Movement Comments Flowsheet Date 12/28/2019 Funes Score Blood Edema Fundus Height Fundus Units Glucose Ketones Leukocytes Nitrite Labor Signs Protein Cervic Dilation Cervic Effacement Cervic Station Type Weight in lbs Pre/Post Dialysis Refused Weight 178.489271922185 BP Diastolic BP Location Tested BP Systolic BP Type 87 R arm 146 sitting 84 R arm 140 sitting Fetus Heart Rate Present Fetus Movement Comments patient had vision changes l ast night. The vision changes have resolved. She has got some very mild swelling. However, her blood pressure is reasonable. We will continue to observe. Flowsheet Date 01/03/2020 Funes Score Blood Edema Fundus Height Fundus Units Glucose Ketones Leukocytes Nitrite Labor Signs Protein Cervic Dilation Cervic Effacement Cervic Station Type Weight in lbs Pre/Post Dialysis Refused BP Diastolic BP Location Tested BP Systolic BP Type Fetus Heart Rate Present Fetus Movement Comments Flowsheet Date 01/03/2020 Funes Score Blood Edema Fundus Height Fundus Units Glucose Ketones Leukocytes Nitrite Labor Signs Protein Cervic Dilation Cervic Effacement Cervic Station 35 Type Weight in lbs Pre/Post Dialysis Refused Weight 179.254172645366 BP Diastolic BP Location Tested BP Systolic BP Type 93 137 Fetus Heart Rate Present A 130 Fetus Movement A Yes Comments Pt states she had a headache the last 2 days but is improved today. Will send to L&D for labs. Discussed precautions. Flowsheet Date 01/07/2020 Funes Score Blood Edema Fundus Height Fundus Units Glucose Ketones Leukocytes Nitrite Labor Signs Protein Cervic Dilation Cervic Effacement Cervic Station Type Weight in lbs Pre/Post Dialysis Refused BP Diastolic BP Location Tested BP Systolic BP Type Fetus Heart Rate Present Fetus Movement Comments Flowsheet Date 01/07/2020 Funes Score Blood Edema Fundus Height Fundus Units Glucose Ketones Leukocytes Nitrite Labor Signs Protein Cervic Dilation Cervic Effacement Cervic Station 36 0cm Type Weight in lbs Pre/Post Dialysis Refused Weight 178.225826040126 BP Diastolic BP Location Tested BP Systolic BP Type 80 L arm 121 sitting Fetus Heart Rate Present A 145 Fetus Movement A Yes Comments Flowsheet Date 01/10/2020 Funes Score Blood Edema Fundus Height Fundus Units Glucose Ketones Leukocytes Nitrite Labor Signs Protein Cervic Dilation Cervic Effacement Cervic Station Type Weight in lbs Pre/Post Dialysis Refused BP Diastolic BP Location Tested BP Systolic BP Type Fetus Heart Rate Present Fetus Movement Comments Flowsheet Date 01/14/2020 Funes Score Blood Edema Fundus Height Fundus Units Glucose Ketones Leukocytes Nitrite Labor Signs Protein Cervic Dilation Cervic Effacement Cervic Station Type Weight in lbs Pre/Post Dialysis Refused BP Diastolic BP Location Tested BP Systolic BP Type Fetus Heart Rate Present Fetus Movement Comments Flowsheet Date 01/14/2020 Funes Score Blood Edema Fundus Height Fundus Units Glucose Ketones Leukocytes Nitrite Labor Signs Protein Cervic Dilation Cervic Effacement Cervic Station Type Weight in lbs Pre/Post Dialysis Refused BP Diastolic BP Location Tested BP Systolic BP Type Fetus Heart Rate Present Fetus Movement Comments Flowsheet Date 01/14/2020 Funes Score Blood Edema Fundus Height Fundus Units Glucose Ketones Leukocytes Nitrite Labor Signs Protein Cervic Dilation Cervic Effacement Cervic Station 38 trace Type Weight in lbs Pre/Post Dialysis Refused Weight 179.889665676741 BP Diastolic BP Location Tested BP Systolic BP Type 98 R arm 149 sitting 88 R arm 145 sitting Fetus Heart Rate Present A 145 Fetus Movement A Yes Comments This patient is a 24-year-ol d 1 at 36 weeks and 5 days gestation who presents for care. We are going to induce her at 37 weeks for PIH, polyhydramnios and gestational diabetes Flowsheet Date 02/18/2020 Funes Score Blood Edema Fundus Height Fundus Units Glucose Ketones Leukocytes Nitrite Labor Signs Protein Cervic Dilation Cervic Effacement Cervic Station Type Weight in lbs Pre/Post Dialysis Refused Weight 158.494719784506 BP Diastolic BP Location Tested BP Systolic BP Type 87 R arm 142 sitting 78 R arm 122 sitting Fetus Heart Rate Present Fetus Movement Comments Menstrual History Last Menstrual Date Menses Monthly On Bcp Conception Prior Menses Frequency Hcg Plus Date Menarche Onset Age 0105/07/2019 true Genetic Screening And Infection History Question Response Note Mental Retardation/Autism false Patient's Age Will Be 35 Years Or Older At Estim ated Date of Delivery false Thalassemia (Tongan, Bulgarian, Mediterranean, Or Background): MCV < 80 false Neural Tube Defect (Meningomyelocele, Spina Bifi da, Or Anencephaly) false Congenital Heart Defect false Down Syndrome false Romero-Sachs (eg, Rastafari, Cajun, Surinamese-Lebanese) f alse Alejandro Disease false Sickle Cell Disease Or Trait () false Hemophilia Or Other Blood Disorders false Muscular Dystrophy false Cystic Fibrosis false Roseau's Chorea false Intellectual Disability/Autism false If Yes, Was Person Tested For Fragile X? false Other Inherited Genetic Or Chromosomal Disorder false Maternal Metabolic Disorder (eg, Type 1 Diabetes , PKU) false Patient Or Baby's Father Had A Child With Defects Not Listed Above false Recurrent Loss, Or A Stillbirth false Medications (including Suppl ements, Vitamins, Herbs, OTC Drugs), Illicit/Recreational Drugs, Alcohol false If Yes, Agent(s) And Strength/Dosage false Any Other Genetic History false Live With Someone With TB Or Exposed To TB false Patient Or Partner Has History Of Genital Herpes false Rash Or Viral Illness Since Last Menstrual Perio d false History Of STD, Gonorrhea, Chlamydia, HPV, Syphi lis false Other Infection History false History of HIV false History of Hepatitis false Prior GBS-infected child false Hemoglobinopathy Or Carrier false Other Structural Defect false Recent Travel History Outside of Country false Delivery Information Delivery Date Delivery Type Labor Anesthesia Weeks Gestation Incision Type Labor Labor Length Hrs Delivered By Post Complications Tubal Sterilization Discharge Date Comments 0 Induce d Regional-Ep idural 37.3 true [email or web address] None GDM/GHTN / PTL procardia Discharge Information Feeding Method Contraceptive Method Maternal HG B and HCT Levels Combination OCP Ob Episode Information Episode Created Date Number of Fetuses Patient Bloodtype Patient rh Status Prepregnancy Weight lbs Domestic Partner Domestic Partner Phone Father Name Sales Agent Food Vending Service Status 01/28/20 20 1 DELETED Darren Calculation Initial Darren Date Initial Exam Date Initial Exam Provider Initial Ultrasound Date Last Menstrual Period Date Ultra Sound Weeks Gestation 0 Eighteen To Twenty Week Darren Update Ultra Sound Date Fundal Height At Umbil Quickening Date Ultra Sound Latest Weeks Gestation Final Darren Confirmed By Final Darren Confirmed Date Final Darren Date Ultra Sound Latest Days Gestation 0 0 Menstrual History Last Menstrual Date Menses Monthly On Bcp Conception Prior Menses Frequency Hcg Plus Date Menarche Onset Age Delivery Information Delivery Date Delivery Type Labor Anesthesia Weeks Gestation Incision Type Labor Labor Length Hrs Delivered By Post Complications Tubal Sterilization Discharge Date Comments 0 37 +GBS,GHT N Discharge Information Feeding Method Contraceptive Method Maternal HG B and HCT Levels Ob Episode Information Episode Created Date Number of Fetuses Patient Bloodtype Patient rh Status Prepregnancy Weight lbs Domestic Partner Domestic Partner Phone Father Name Sales Agent Food Vending Service Status 01/07/20 21 1 A Positive 178 CLOSED Fetus Data First Name Last Name Admitted to NICU Weight (g) Sex Living Outcome Pediatric Complications Fetus ID Race Codes Race Delivery Type [place] [id number] F true Full Term [id number] Vaginal Delivery Problems Problem Notes also close interval pregnanc ydeclines NIPT08/06/19 - negative CF/SMA Problem Name Start Date End Date Resolution Snomed Code Not e Past history of gestational diabetes mellitus 01/06/2021 [id number] Failed ear ly 1 hr, but passed 3hr. passed 2hr at 28w Past history of pre-eclampsia 01/06/2021 [id number] ASA, bas shell PIH labs Polyhydramnios 06/24/2021 [id number] FIDE 28.9. Wkly 10pt testing. A1C pending. Elevated blood-pressure reading without diagnosis of hypertension [id number] borderline- 130s/80- no testing needed. Darren Calculation Initial Darren Date Initial Exam Date Initial Exam Provider Initial Ultrasound Date Last Menstrual Period Date Ultra Sound Weeks Gestation 07/17/2021 01/06/2021 12/09/2020 10/10/2020 8 Eighteen To Twenty Week Darren Update Ultra Sound Date Fundal Height At Umbil Quickening Date Ultra Sound Latest Weeks Gestation Final Darren Confirmed By Final Darren Confirmed Date Final Darren Date Ultra Sound Latest Days Gestation 0 [email or web address] 01/06/2021 07/18/19 22 0 Pre- Flowsheet Flowsheet Date 01/06/2021 Funes Score Blood Edema Fundus Height Fundus Units Glucose Ketones Leukocytes Nitrite Labor Signs Protein Cervic Dilation Cervic Effacement Cervic Station neg none trace Type Weight in lbs Pre/Post Dialysis Refused Weight 175.811000779126 BP Diastolic BP Location Tested BP Systolic BP Type 84 132 Fetus Heart Rate Present A 150 Fetus Movement A No Comments Antoinette Romano is a 25yo at 12.4 for care. Last less than a year ago, 37 week complicated by PreE and GDMA1. Will do baseline PIH labs, early GCT at 20 weeks, and we discussed recurrent risks of these conditions. Will take ASA. US today NT normal, declines NIPT. We discussed risks of close interval . Flowsheet Date 02/09/2021 Funes Score Blood Edema Fundus Height Fundus Units Glucose Ketones Leukocytes Nitrite Labor Signs Protein Cervic Dilation Cervic Effacement Cervic Station neg none trace Type Weight in lbs Pre/Post Dialysis Refused Weight 176.358167906430 BP Diastolic BP Location Tested BP Systolic BP Type 79 121 Fetus Heart Rate Present A 145 Fetus Movement A No Comments Doing great, no concerns. Jessica miranda some FM, unsure. Taking ASA. BP good. Early GCT next. Anatomy next. Flowsheet Date 02/26/2021 Funes Score Blood Edema Fundus Height Fundus Units Glucose Ketones Leukocytes Nitrite Labor Signs Protein Cervic Dilation Cervic Effacement Cervic Station Type Weight in lbs Pre/Post Dialysis Refused BP Diastolic BP Location Tested BP Systolic BP Type Fetus Heart Rate Present Fetus Movement Comments Flowsheet Date 02/26/2021 Funes Score Blood Edema Fundus Height Fundus Units Glucose Ketones Leukocytes Nitrite Labor Signs Protein Cervic Dilation Cervic Effacement Cervic Station 20 trace Type Weight in lbs Pre/Post Dialysis Refused Weight 178.827180091939 BP Diastolic BP Location Tested BP Systolic BP Type 83 L arm 130 sitting Fetus Heart Rate Present A 145 Fetus Movement A Yes Comments the normal appearing b aseline anatomy scan today Flowsheet Date 03/30/2021 Funes Score Blood Edema Fundus Height Fundus Units Glucose Ketones Leukocytes Nitrite Labor Signs Protein Cervic Dilation Cervic Effacement Cervic Station 24 Type Weight in lbs Pre/Post Dialysis Refused Weight 180.033874455159 BP Diastolic BP Location Tested BP Systolic BP Type 78 R arm 124 sitting Fetus Heart Rate Present A 143 Fetus Movement A Yes Comments no complaints, good mo vement, past early 3 hour GTT, to repeat diabetes screen in 4 weeks. Flowsheet Date 04/29/2021 Funes Score Blood Edema Fundus Height Fundus Units Glucose Ketones Leukocytes Nitrite Labor Signs Protein Cervic Dilation Cervic Effacement Cervic Station neg trace 30 none trace Type Weight in lbs Pre/Post Dialysis Refused Weight 181.332603549125 BP Diastolic BP Location Tested BP Systolic BP Type 85 134 Fetus Heart Rate Present A 140 Fetus Movement A Yes Comments Doing well. Great FM. GTT to day. Discussed some borderline BPs, but nothing higher than that. I don't think she fits criteria for cHTN at this time. Continue ASA for h/o PreE. Discussed vaccines- flu done, COVID done, will do booster, and will do Tdap. Flowsheet Date 05/13/2021 Funes Score Blood Edema Fundus Height Fundus Units Glucose Ketones Leukocytes Nitrite Labor Signs Protein Cervic Dilation Cervic Effacement Cervic Station trace 31 none trace Type Weight in lbs Pre/Post Dialysis Refused Weight 183.088680828918 BP Diastolic BP Location Tested BP Systolic BP Type 79 121 Fetus Heart Rate Present A 140 Fetus Movement A Yes Comments Doing great. Passed 2 hr. No GDM this time. Tdap done, covid booster next week. no concerns. Flowsheet Date 05/27/2021 Funes Score Blood Edema Fundus Height Fundus Units Glucose Ketones Leukocytes Nitrite Labor Signs Protein Cervic Dilation Cervic Effacement Cervic Station neg trace 34 none trace Type Weight in lbs Pre/Post Dialysis Refused Weight 183.712475929582 BP Diastolic BP Location Tested BP Systolic BP Type 81 131 Fetus Heart Rate Present A 155 Fetus Movement A Yes Comments Doing great, no concerns. BP at baseline, continue to monitor. Taking ASA. Got covid booster. Tdap done. Flowsheet Date 06/10/2021 Funes Score Blood Edema Fundus Height Fundus Units Glucose Ketones Leukocytes Nitrite Labor Signs Protein Cervic Dilation Cervic Effacement Cervic Station neg trace 32 none trace Type Weight in lbs Pre/Post Dialysis Refused Weight 186.591857035018 BP Diastolic BP Location Tested BP Systolic BP Type 84 124 Fetus Heart Rate Present A 150 Fetus Movement A Yes Comments Doing well. Bp great. Some B H, labor precautions given. US next for S<D. GBS next, discussed. Flowsheet Date 06/24/2021 Funes Score Blood Edema Fundus Height Fundus Units Glucose Ketones Leukocytes Nitrite Labor Signs Protein Cervic Dilation Cervic Effacement Cervic Station Type Weight in lbs Pre/Post Dialysis Refused BP Diastolic BP Location Tested BP Systolic BP Type Fetus Heart Rate Present Fetus Movement Comments Flowsheet Date 06/24/2021 Funes Score Blood Edema Fundus Height Fundus Units Glucose Ketones Leukocytes Nitrite Labor Signs Protein Cervic Dilation Cervic Effacement Cervic Station neg none none trace 3cm 50% -3 Type Weight in lbs Pre/Post Dialysis Refused Weight 187.037537956398 BP Diastolic BP Location Tested BP Systolic BP Type 81 143 80 132 Fetus Heart Rate Present A 150 Fetus Movement A Yes Comments Doing well. GBS done and dis cussed. US today with EFW 69% and poly with FIDE of 29. WIll start testing and do A1C. BP borderline, will also do PIH labs given her h/o PreE. Denies NORIEGA/BV/EP. Precautions given. Discuss option of 39w IOL next visit. Flowsheet Date 07/01/2021 Funes Score Blood Edema Fundus Height Fundus Units Glucose Ketones Leukocytes Nitrite Labor Signs Protein Cervic Dilation Cervic Effacement Cervic Station Type Weight in lbs Pre/Post Dialysis Refused BP Diastolic BP Location Tested BP Systolic BP Type Fetus Heart Rate Present Fetus Movement Comments Flowsheet Date 07/01/2021 Funes Score Blood Edema Fundus Height Fundus Units Glucose Ketones Leukocytes Nitrite Labor Signs Protein Cervic Dilation Cervic Effacement Cervic Station Type Weight in lbs Pre/Post Dialysis Refused BP Diastolic BP Location Tested BP Systolic BP Type Fetus Heart Rate Present Fetus Movement Comments Flowsheet Date 07/01/2021 Funes Score Blood Edema Fundus Height Fundus Units Glucose Ketones Leukocytes Nitrite Labor Signs Protein Cervic Dilation Cervic Effacement Cervic Station neg none none trace 4cm 60% -2 Type Weight in lbs Pre/Post Dialysis Refused Weight 188.128860399388 BP Diastolic BP Location Tested BP Systolic BP Type 85 131 Fetus Heart Rate Present A 145 Fetus Movement A Yes Comments Doing ok. Lots of contractio ns, poly remains with FIDE 26. Was at hospital Sat with q 10 min ctx but didn't change cervix. Would like 39w IOL if undelivered. A1C and PIH labs were wnl. BP fine today. Precautions given. Flowsheet Date 07/08/2021 Funes Score Blood Edema Fundus Height Fundus Units Glucose Ketones Leukocytes Nitrite Labor Signs Protein Cervic Dilation Cervic Effacement Cervic Station Type Weight in lbs Pre/Post Dialysis Refused BP Diastolic BP Location Tested BP Systolic BP Type Fetus Heart Rate Present Fetus Movement Comments Flowsheet Date 07/08/2021 Funes Score Blood Edema Fundus Height Fundus Units Glucose Ketones Leukocytes Nitrite Labor Signs Protein Cervic Dilation Cervic Effacement Cervic Station Type Weight in lbs Pre/Post Dialysis Refused BP Diastolic BP Location Tested BP Systolic BP Type Fetus Heart Rate Present Fetus Movement Comments Flowsheet Date 07/08/2021 Funes Score Blood Edema Fundus Height Fundus Units Glucose Ketones Leukocytes Nitrite Labor Signs Protein Cervic Dilation Cervic Effacement Cervic Station neg none none trace 4cm 60% -2 Type Weight in lbs Pre/Post Dialysis Refused Weight 187.913028028689 BP Diastolic BP Location Tested BP Systolic BP Type 91 143 83 125 Fetus Heart Rate Present A 140 Fetus Movement A Yes Comments Doing well. Cervix 4.5/60/-2 /soft/anterior with slightly bulgy bag. IOL scheduled in 2 days if doesn't labor spontaneously. Precautions given. Menstrual History Last Menstrual Date Menses Monthly On Bcp Conception Prior Menses Frequency Hcg Plus Date Menarche Onset Age 0610/10/2020 Genetic Screening And Infection History Question Response Note Mental Retardation/Autism false Patient's Age Will Be 35 Years Or Older At Estim ated Date of Delivery false Thalassemia (Tongan, Bulgarian, Mediterranean, Or Background): MCV < 80 false Neural Tube Defect (Meningomyelocele, Spina Bifi da, Or Anencephaly) false Congenital Heart Defect false Down Syndrome false Romero-Sachs (eg, Rastafari, Cajun, Surinamese-Lebanese) f alse Alejandro Disease false Sickle Cell Disease Or Trait () false Hemophilia Or Other Blood Disorders false Muscular Dystrophy false Cystic Fibrosis false Walter's Chorea false Intellectual Disability/Autism false If Yes, Was Person Tested For Fragile X? false Other Inherited Genetic Or Chromosomal Disorder false Maternal Metabolic Disorder (eg, Type 1 Diabetes , PKU) false Patient Or Baby's Father Had A Child With Defects Not Listed Above false Recurrent Loss, Or A Stillbirth false Medications (including Suppl ements, Vitamins, Herbs, OTC Drugs), Illicit/Recreational Drugs, Alcohol false If Yes, Agent(s) And Strength/Dosage false Any Other Genetic History false Live With Someone With TB Or Exposed To TB false Patient Or Partner Has History Of Genital Herpes false Rash Or Viral Illness Since Last Menstrual Perio d false History Of STD, Gonorrhea, Chlamydia, HPV, Syphi lis false Other Infection History false History of HIV false History of Hepatitis false Prior GBS-infected child false Hemoglobinopathy Or Carrier false Other Structural Defect false Recent Travel History Outside of Country false Delivery Information Delivery Date Delivery Type Labor Anesthesia Weeks Gestation Incision Type Labor Labor Length Hrs Delivered By Post Complications Tubal Sterilization Discharge Date Comments 2 Induce d Regional-Ep idural 39 false Ayleen Alves MD Polyhydra mnios, Hx of Gdm and Pre eclampsia Discharge Information Feeding Method Contraceptive Method Maternal HG B and HCT Levels Ob Episode Information Episode Created Date Number of Fetuses Patient Bloodtype Patient rh Status Prepregnancy Weight lbs Domestic Partner Domestic Partner Phone Father Name Sales Agent Food Vending Service Status 04/26/19 25 1 A Positive Alexaga er Deck OPEN Fetus Data First Name Last Name Admitted to NICU Weight (g) Sex Living Outcome Pediatric Complications Fetus ID Race Codes Race Delivery Type [id number] Problems Problem Notes Problem Name Start Date End Date Resolution Snomed Code Not e Past history of pre-eclampsia [id number] x2; 162mg A SA; baseline labs wnl Anemia 08/29/2024 [id number] Darren Calculation Initial Darren Date Initial Exam Date Initial Exam Provider Initial Ultrasound Date Last Menstrual Period Date Ultra Sound Weeks Gestation 11/03/2024 04/26/2024 03/27/2024 01/28/2024 8 Eighteen To Twenty Week Darren Update Ultra Sound Date Fundal Height At Umbil Quickening Date Ultra Sound Latest Weeks Gestation Final Darren Confirmed By Final Darren Confirmed Date Final Darren Date Ultra Sound Latest Days Gestation 0 [email or web address] 04/26/2024 11/04/19 25 0 Pre- Flowsheet Flowsheet Date 04/26/2024 Funes Score Blood Edema Fundus Height Fundus Units Glucose Ketones Leukocytes Nitrite Labor Signs Protein Cervic Dilation Cervic Effacement Cervic Station Type Weight in lbs Pre/Post Dialysis Refused BP Diastolic BP Location Tested BP Systolic BP Type Fetus Heart Rate Present Fetus Movement Comments Flowsheet Date 04/26/2024 Funes Score Blood Edema Fundus Height Fundus Units Glucose Ketones Leukocytes Nitrite Labor Signs Protein Cervic Dilation Cervic Effacement Cervic Station Type Weight in lbs Pre/Post Dialysis Refused Weight 175.977364265505 BP Diastolic BP Location Tested BP Systolic BP Type 85 L arm 125 sitting Fetus Heart Rate Present A Present Fetus Movement Comments Patient presents to [facility] care. Hx of preeclampsia without severe features x2, delivered at 37 and 38 weeks. Discussed risk of recurrence this ; recommend 162mg ASA for ppx. otherwise uncomplicated. No nausea or cramping. NT/NB wnl today, desires NIPT. Will draw today with new OB labs. RTC 4 weeks for routine care. Flowsheet Date 05/23/2024 Funes Score Blood Edema Fundus Height Fundus Units Glucose Ketones Leukocytes Nitrite Labor Signs Protein Cervic Dilation Cervic Effacement Cervic Station neg none Type Weight in lbs Pre/Post Dialysis Refused 174.78493844546 BP Diastolic BP Location Tested BP Systolic BP Type 85 L arm 123 sitting Fetus Heart Rate Present Fetus Movement A Yes Comments Pateint c/o of slight leg cr amps. Discussed hydration and increasing electrolytes. No bleeding. Good movement. LR male NIPT! Other OB labs wnl. Discussed anatomy US for next visit. RTC 4 weeks. Flowsheet Date 06/19/2024 Funes Score Blood Edema Fundus Height Fundus Units Glucose Ketones Leukocytes Nitrite Labor Signs Protein Cervic Dilation Cervic Effacement Cervic Station Type Weight in lbs Pre/Post Dialysis Refused BP Diastolic BP Location Tested BP Systolic BP Type Fetus Heart Rate Present Fetus Movement Comments Flowsheet Date 06/19/2024 Funes Score Blood Edema Fundus Height Fundus Units Glucose Ketones Leukocytes Nitrite Labor Signs Protein Cervic Dilation Cervic Effacement Cervic Station neg none Type Weight in lbs Pre/Post Dialysis Refused 179.458065526182 BP Diastolic BP Location Tested BP Systolic BP Type 77 L arm 127 sitting Fetus Heart Rate Present A 140 Fetus Movement A Yes Comments No cramping or bleeding. Sma ll movements. Anatomy US today, complete and normal. Small [employer], discussed with patient and reassured. EFW 74%. Leg cramping improved. RTC 4 weeks. Flowsheet Date 07/17/2024 Funes Score Blood Edema Fundus Height Fundus Units Glucose Ketones Leukocytes Nitrite Labor Signs Protein Cervic Dilation Cervic Effacement Cervic Station neg none Type Weight in lbs Pre/Post Dialysis Refused 182.828438500011 BP Diastolic BP Location Tested BP Systolic BP Type 74 113 Fetus Heart Rate Present Fetus Movement A Yes Comments Patient is having some round ligament pain. on doppler FHR 150 down to 60, US done wnl, will do NST, +FM, precautions and education f/u 4 weeks with GCT Flowsheet Date 07/17/2024 Funes Score Blood Edema Fundus Height Fundus Units Glucose Ketones Leukocytes Nitrite Labor Signs Protein Cervic Dilation Cervic Effacement Cervic Station Type Weight in lbs Pre/Post Dialysis Refused Weight 182.502897813286 BP Diastolic BP Location Tested BP Systolic BP Type 74 113 Fetus Heart Rate Present Fetus Movement Comments Flowsheet Date 08/17/2024 Funes Score Blood Edema Fundus Height Fundus Units Glucose Ketones Leukocytes Nitrite Labor Signs Protein Cervic Dilation Cervic Effacement Cervic Station neg none Type Weight in lbs Pre/Post Dialysis Refused 189.933504551412 BP Diastolic BP Location Tested BP Systolic BP Type 78 119 Fetus Heart Rate Present Fetus Movement A Yes Comments Patient states that is havin g some pelvic pain.discussed ice, limited movements, plan support belt, +FM GCT today, doing well precautions and education f/u 2 weeks Flowsheet Date 08/29/2024 Funes Score Blood Edema Fundus Height Fundus Units Glucose Ketones Leukocytes Nitrite Labor Signs Protein Cervic Dilation Cervic Effacement Cervic Station neg trace 27 cm Type Weight in lbs Pre/Post Dialysis Refused Weight 188.617580093839 BP Diastolic BP Location Tested BP Systolic BP Type 79 124 Fetus Heart Rate Present A 139 Fetus Movement A Yes Comments Patient is having discharge and swelling. reviewed precautions, call for preadmit, +FM, passed GCT bp normotensive f/u 2 weeks with growth Flowsheet Date 09/12/2024 Funes Score Blood Edema Fundus Height Fundus Units Glucose Ketones Leukocytes Nitrite Labor Signs Protein Cervic Dilation Cervic Effacement Cervic Station Type Weight in lbs Pre/Post Dialysis Refused BP Diastolic BP Location Tested BP Systolic BP Type Fetus Heart Rate Present Fetus Movement Comments Flowsheet Date 09/12/2024 Funes Score Blood Edema Fundus Height Fundus Units Glucose Ketones Leukocytes Nitrite Labor Signs Protein Cervic Dilation Cervic Effacement Cervic Station neg trace Type Weight in lbs Pre/Post Dialysis Refused 188.189071160734 BP Diastolic BP Location Tested BP Systolic BP Type 72 114 Fetus Heart Rate Present Fetus Movement A Yes Comments Patient is having BH contrac tions, back pain, discharge and swelling. efw 69%, +FM,vertex, considering 39 week IOL, f/u 2 weeks, call for preadmit, precautions and education Flowsheet Date 09/26/2024 Funes Score Blood Edema Fundus Height Fundus Units Glucose Ketones Leukocytes Nitrite Labor Signs Protein Cervic Dilation Cervic Effacement Cervic Station neg trace Type Weight in lbs Pre/Post Dialysis Refused Weight 187.405176333015 BP Diastolic BP Location Tested BP Systolic BP Type 79 122 Fetus Heart Rate Present A 145 Fetus Movement A Yes Comments Patient is having some BH co ntractions, not sleeping well, headache, swelling, and nausea. ok for unisom +FM doing well, precautions and education gbs next visit Flowsheet Date 10/10/2024 Funes Score Blood Edema Fundus Height Fundus Units Glucose Ketones Leukocytes Nitrite Labor Signs Protein Cervic Dilation Cervic Effacement Cervic Station neg trace 2cm 70% -3 Type Weight in lbs Pre/Post Dialysis Refused Weight 188.125645707056 BP Diastolic BP Location Tested BP Systolic BP Type 80 126 Fetus Heart Rate Present A 147 Fetus Movement A Yes Comments Patient is having some back pain, contractions, discharge, swelling and nausea. +FM schedule 39 week IOL. precautions and education. gbs collected Flowsheet Date 10/17/2024 Funes Score Blood Edema Fundus Height Fundus Units Glucose Ketones Leukocytes Nitrite Labor Signs Protein Cervic Dilation Cervic Effacement Cervic Station 3cm 60% -2 Type Weight in lbs Pre/Post Dialysis Refused Weight 190.950247269789 BP Diastolic BP Location Tested BP Systolic BP Type 81 L arm 132 sitting Fetus Heart Rate Present Fetus Movement A Yes Comments +fm, doing well precautions and education f/u one week Flowsheet Date 10/24/2024 Funes Score Blood Edema Fundus Height Fundus Units Glucose Ketones Leukocytes Nitrite Labor Signs Protein Cervic Dilation Cervic Effacement Cervic Station 4cm 60% -2 Type Weight in lbs Pre/Post Dialysis Refused 191.307644566144 BP Diastolic BP Location Tested BP Systolic BP Type 79 L arm 127 sitting Fetus Heart Rate Present Fetus Movement A Yes Comments +FM IOL Tuesday, doing well, education and precautions Flowsheet Date 10/24/2024 Funes Score Blood Edema Fundus Height Fundus Units Glucose Ketones Leukocytes Nitrite Labor Signs Protein Cervic Dilation Cervic Effacement Cervic Station Type Weight in lbs Pre/Post Dialysis Refused BP Diastolic BP Location Tested BP Systolic BP Type Fetus Heart Rate Present Fetus Movement Comments Menstrual History Last Menstrual Date Menses Monthly On Bcp Conception Prior Menses Frequency Hcg Plus Date Menarche Onset Age 1001/28/2024 Delivery Information Delivery Date Delivery Type Labor Anesthesia Weeks Gestation Incision Type Labor Labor Length Hrs Delivered By Post Complications Tubal Sterilization Discharge Date Comments Discharge Information Feeding Method Contraceptive Method Maternal HG B and HCT Levels
--- NOTE | 2024-10-27 05:21 | LDADM ---
This patient, Antoinette Jennings, was admitted to Labor/Delivery/Recovery 106 on 10/27/24 at 04:59. Plans for labor, pain management and were discussed with patient. Patient/family oriented to hospital policies and general routines including ID bracelet, bed and alarms, visiting hours, pain management, procedures, bathroom and other care routines, personal items, smoking policy, room service/diet and guest tray routines, security routines, and visiting hours. Patient/Family are encouraged to report perceived risks to care and to ask questions if they do not understand what they are told or what they should do. See OBIX for further documentation.
[2024-10-27 05:26] LABS: Hematocrit 30.2 % (37.0-47.0); Hemoglobin 9.5 g/dL (12.0-15.0); Immature Granulocyte Percent A 0.7 % (0-0.5); Lymphocytes Absolute Auto 2.70 K/mm3 (0.9-3.2); Mean Corpuscular HGB Conc 31.5 g/dl (32-36); Mean Corpuscular Hemoglobin 26.9 pg (26-34); Mean Corpuscular Volume 85.6 fl (80-100); Nucleated Red Blood Cells Absolute Auto 0.000 K/mm3 (0.0-0.012); Nucleated Red Blood Cells Perc 0.0 % (0.0-0.2); Platelet Count Result 224 k/mm3 (150-375); Red Blood Count 3.53 M/mm3 (4.2-5.4); White Blood Count 10.2 K/mm3 (4.5-10.0)
[2024-10-27] MEDS: LACTATED RINGERS 1,000 ML 125 ML IV CONT ×2 (05:34→07:55)
[2024-10-27] MEDS: AMPICILLIN 2 GM/NS 100 ML 2 GM/100 ML BAG IVPB (05:35)
[2024-10-27 05:39] LABS: Alanine Aminotransferase 12 U/L (6-35); Albumin Level 3.4 g/dL (3.5-5.1); Alkaline Phosphatase 199 U/L (38-126); Anion Gap 8 mmol/L (4-12); Aspartate Amino Transferase 22 U/L (14-36); Bilirubin,Total 0.5 mg/dL (0.2-1.3); Blood Urea Nitrogen 11 mg/dL (7-17); Calcium 8.5 mg/dL (8.4-10.2); Carbon Dioxide 22 mmol/L (22-30); Chloride 104 mmol/L (98-107); Estimated CRCL calculation 141 ml/min; Estimated Glomerular Filt Rate > 60; Glucose 88 mg/dL (65-110); Potassium 3.6 mmol/L (3.4-5.0); Sodium 134 mmol/L (137-145); Total Protein 6.6 g/dL (6.3-8.2)
[2024-10-27 06:06] LABS: Syphilis IgG/IgM Antibody Non-Reactive (Nonreactive)
--- NOTE | 2024-10-27 07:40 | PM.IMHP ---
H&P: HPI History of Present Illness Date/Time: 10/27/24 07:40 Chief Complaint: elective induction of labor Narrative: Patient is a 29 year old at 39 weeks gestation who presents for elective induction of labor. Her has been overall uncomplicated aside from anemia, hgb 9.5 on admission. She denies strong contractions, leakage of fluid or vaginal bleeding. She reports good movement. Review of Systems Review of Systems: All systems reviewed & are unremarkable except as noted in HPI and below PMFSH Past Medical History Medical History PIH ( induced hypertension) Gestational diabetes IUP (intrauterine ), incidental Family History Family History Grandparent Melanoma Grandparent Cancer Social History Social History Smoking status: Never smoker Second hand tobacco smoke exposure: No Substance use: never Do You Feel Safe in your Home?: Yes Lack of Transportation: No Lack of Food: Never True Current Housing: I Have Housing Concerned About Future Housing: No Difficulty Paying Gas/Electric Bills: No Difficulty Paying for Meds: No Currently Unemployed: No Education: Bachelor's Degree Difficulty w/ Childcare or Family Care: No Spiritual care concerns: No Meds Home Medications and Allergies Home Medications ?Medication ?Instructions ?Recorded ?Confirmed ?Type vits 75-iron 28 mg-folic 1 pkg PO DAILY 12/17/19 10/27/24 History acid 800 mcg-omega3 440 mg oral pack (Daily ) ferrous sulfate 325 mg BYMOUTH BID 07/10/21 10/27/24 History aspirin 81 mg tablet 162 mg PO DAILY 10/04/24 10/27/24 History Allergies Allergy/AdvReac Type Severity Reaction Status Date / Time CASHEWS Allergy Rash Uncoded 10/27/24 05:30 Vital Signs Vital Signs - 24 hr 10/27/24 05:19 10/27/24 05:32 10/27/24 05:36 Temperature 98.3 F Pulse Rate 74 Blood Pressure 137/83 Oxygen Delivery Room Air 10/27/24 05:45 10/27/24 06:00 10/27/24 06:15 Temperature Pulse Rate 78 75 75 Blood Pressure 131/85 132/84 124/77 Oxygen Delivery 10/27/24 06:30 10/27/24 06:45 10/27/24 07:00 Temperature Pulse Rate 66 76 65 Blood Pressure 124/76 133/87 129/77 Oxygen Delivery 10/27/24 07:15 10/27/24 07:30 Temperature Pulse Rate 70 65 Blood Pressure 135/87 130/78 Oxygen Delivery Exam Const: General: comfortable and no acute distress Eyes: General: appearance normal, both eyes and all related structures Resp: Effort & Inspection: normal respiratory effort Cardio: Rate: regular rate Skin: General skin exam: normal color Extrem: General: normal to inspection Psych: Mental Status: mental status grossly normal H&P: Results Labs Labs: Short CBC 10/27/24 Range/Units 05:20 WBC 10.2 H (4.5-10.0) K/mm3 Hgb 9.5 L (12.0-15.0) g/dL Hct 30.2 L (37.0-47.0) % Plt Count 224 (150-375) k/mm3 BMP 10/27/24 05:20 Sodium 134 L Potassium 3.6 Chloride 104 Carbon Dioxide 22 BUN 11 Creatinine 0.54 L Glucose 88 Calcium 8.5 Liver Function 10/27/24 Range/Units 05:20 Total Bilirubin 0.5 (0.2-1.3) mg/dL AST 22 (14-36) U/L ALT 12 (6-35) U/L Alkaline Phosphatase 199 H (38-126) U/L Albumin 3.4 L (3.5-5.1) g/dL Assessment and Plan Assessment and plan (1) Encounter for elective induction of labor: Code(s): Z34.90 - Encounter for supervision of normal , unspecified, unspecified trimester Status: Acute Assessment and Plan: - SVE 4cm/60/-2 - AROM performed with clear fluid - pitocin per protocol - epidural in place - FHR category I
--- NOTE | 2024-10-27 07:46 | P.PNAN_ITS ---
Anes - Eval Pre Procedure Procedure: labor pain management Date/Time: 10/27/24 07:46 Surgeon: Jeanmarie Preop Diagnosis: pain during labor Pre Op Diagnosis: IOL Patient Data Age: 29 Gender: F Height: 1.65 m Weight: 86.18 kg Last Vital Signs Temp 98.3 F 10/27/24 05:36 Pulse 65 10/27/24 07:30 BP 130/78 10/27/24 07:30 O2 Del Method Room Air 10/27/24 05:19 Allergies Allergy/AdvReac Type Severity Reaction Status Date / Time SORAYA Allergy Rash Uncoded 10/27/24 05:30 Home Medications ?Medication ?Instructions ?Recorded ?Confirmed ?Type vits 75-iron 28 mg-folic 1 pkg PO DAILY 12/17/19 10/27/24 History acid 800 mcg-omega3 440 mg oral pack (Daily ) ferrous sulfate 325 mg BYMOUTH BID 07/10/21 10/27/24 History aspirin 81 mg tablet 162 mg PO DAILY 10/04/24 10/27/24 History Laboratory Tests 10/27/24 05:20 WBC 10.2 H K/mm3 (4.5-10.0) RBC 3.53 L M/mm3 (4.2-5.4) Hgb 9.5 L g/dL (12.0-15.0) Hct 30.2 L % (37.0-47.0) MCV 85.6 fl (80-100) MCH 26.9 pg (26-34) MCHC 31.5 L g/dl (32-36) RDW 14.6 H % (11.5-14.5) Plt Count 224 k/mm3 (150-375) MPV 11.6 H fl (7.4-10.4) Immature Gran % (Auto) 0.7 H % (0-0.5) Neut % (Auto) 65.8 % (45.5-73.1) Lymph % (Auto) 26.6 % (18.3-44.2) [place] % (Auto) 5.1 % (2.6-8.5) Eos % (Auto) 1.4 % (0-4.4) Baso % (Auto) 0.4 % (0.2-1.2) Lymph # (Auto) 2.70 K/mm3 (0.9-3.2) [place] # (Auto) 0.5 K/mm3 (0.1-0.6) Eos # (Auto) 0.1 K/mm3 (0-0.3) Baso # (Auto) 0.0 K/mm3 (0.0-0.1) Abs Immat Gran (auto) 0.07 H K/mm3 (0.00-0.031) Absolute Neuts (auto) 6.7 K/mm3 (1.3-6.7) Absolute Nucleated RBC 0.000 K/mm3 (0.0-0.012) Nucleated RBC % 0.0 % (0.0-0.2) Sodium 134 L mmol/L (137-145) Potassium 3.6 mmol/L (3.4-5.0) Chloride 104 mmol/L (98-107) Carbon Dioxide 22 mmol/L (22-30) Anion Gap 8 mmol/L (4-12) BUN 11 mg/dL (7-17) Creatinine 0.54 L mg/dL (0.7-1.0) Estim Creat Clear Calc 141 ml/min Estimated GFR > 60 (59 - ) Glucose 88 mg/dL (65-110) Calcium 8.5 mg/dL (8.4-10.2) Total Bilirubin 0.5 mg/dL (0.2-1.3) AST 22 U/L (14-36) ALT 12 U/L (6-35) Alkaline Phosphatase 199 H U/L (38-126) Total Protein 6.6 g/dL (6.3-8.2) Albumin 3.4 L g/dL (3.5-5.1) Syphilis IgG/IgM Ab Non-reactive (Nonreactive) Blood Type A Positive Antibody Screen Negative Patient hx anesthesia problems: none Family hx anesthesia problems: none Results Review: All pre-operative results and documents have been reviewed as part of the pre- operative evaluation. [facility] Past Medical History Medical History PIH ( induced hypertension) Gestational diabetes IUP (intrauterine ), incidental Family History Family History Grandparent Melanoma Grandparent Cancer Social History Social History Smoking status: Never smoker Second hand tobacco smoke exposure: No Substance use: never Do You Feel Safe in your Home?: Yes Lack of Transportation: No Lack of Food: Never True Current Housing: I Have Housing Concerned About Future Housing: No Difficulty Paying Gas/Electric Bills: No Difficulty Paying for Meds: No Currently Unemployed: No Education: Bachelor's Degree Difficulty w/ Childcare or Family Care: No Spiritual care concerns: No Exam Day of Procedure 10/27/24 07:46
[2024-10-27] MEDS: OXYTOCIN 30 UNITS/NS 500 ML 30 UNITS/500 ML BAG IV CONT ×2 (08:37→15:03)
[2024-10-27] MEDS: AMPICILLIN 1 GM/NS 50 ML 1 GM/50 ML BAG IVPB ×2 (09:33→13:45)
--- NOTE | 2024-10-27 14:41 | P.PCNOB_ITS ---
OB - Vaginal Delivery Note Procedure Delivery date: 10/27/24 Events: Elective Induction of Labor Induction method: AROM and Per Pitocin Protocol Delivery monitor: External FHT and External Uterine Route of delivery: Episiotomy description: None Laceration Description: None Specimen: No Quantitative Blood Loss (ml): 100 Anesthesia type: Epidural Disposition: Floor Complications: No immediate complications Narrative: See H&P and notes for details on patient's admission and labor. She progressed to complete cervical dilation and at the appropriate time began pushing. With adequate expulsive efforts by the mother, the baby's head was delivered without difficulty. Nuchal cord was present x1 and was delivered through. The baby's right shoulder was anterior and delivered under the pubic symphysis without di fficulty. The posterior shoulder and the rest of the baby delivered without difficulty. The umbilical cord was doubly clamped and cut after 60 seconds of delayed cord clamping. Care of the was then assumed by the nursing staff. Baby Date of : 10/27/24 Time of : 14:31 Gestational Age by Date: 39 gender: Male Weight (pounds): 8 Weight (ounces): 9 presentation: vertex position: Left Occiput Anterior Placenta delivery description: Expressed Cord Vessel Description: 3 Vessels, Nuchal Cord and Delayed Cord Clamping
[2024-10-27] MEDS: BENZOCAINE 20% AER SPR (*SP) 56 GM CAN 1 SPRAY TOPICAL (17:08)
[2024-10-27] MEDS: WITCH HAZEL 40 PADS 1 PAD TOPICAL (17:08)
--- NOTE | 2024-10-27 17:12 | PC.NURSE ---
Patient transferred to post room #285 via wheelchair. Support person present. Oriented to unit, room, information board, rooming in, admission packet and security measures. Patient verbalizes understanding.
[2024-10-27] MEDS: IBUPROFEN 600 MG TABLET PO (23:37)
[2024-10-28 05:49] LABS: Hematocrit 28.5 % (37.0-47.0); Hemoglobin 8.9 g/dL (12.0-15.0)
[2024-10-28 07:40] VITALS: BP 117/79; PULSE 57; RESP 18; TEMP 36.3; O2SAT 98
[2024-10-28] MEDS: DOCUSATE SODIUM 100 MG CAPSULE PO (07:46)
--- NOTE | 2024-10-28 10:57 | P.PNOB_ITS ---
OB - PN: Subj Subjective Date/time seen: 10/28/24 10:57 Interval history: PPD#1 Doing well, pain controlled Voiding without issue Formula feeding Ready for discharge home OB - PN: Obj Data Labs 10/28/24 05:38 10/27/24 05:20 Labs: Laboratory Results - last 24 hr 10/28/24 05:38 Hgb 8.9 L Hct 28.5 L OB - PN A/P Plan day: 1 Plan: routine care and discharge home Time Spent With Patient Time: Total time spent is greater than 50% in coordination of care (as documented) at patient's floor/unit and/or counseling patient: Review of Systems 2 Review of Systems: All systems reviewed & are unremarkable except as noted in HPI and below Exam 2 Const: General: comfortable and no acute distress O rientation/consciousness: patient oriented x3 Resp: Effort & Inspection: normal respiratory effort
[2024-10-30 09:17] VITALS: BP 129/75; PULSE 67; RESP 18; TEMP 36.7; O2SAT 100
--- NOTE | 2024-11-05 13:35 | PM.OBDSVD ---
DS: Admitting Diagnosis Discharge Date 10/28/24 Admitting Diagnosis elective induction of labor DS: Discharge Diagnosis Discharge Diagnosis (1) Term delivered: Code(s): O80 - Encounter for full-term uncomplicated delivery Status: Acute OB - DS: Summary OB Procedures : None OB Procedures Intrapartum: Spontaneous Vag Delivery OB Procedures: : None Peripartum Data Laceration Description: None Episiotomy description: None Time Spent with Patient Time attestation: Total time spent providing and/or coordinating discharge services: Discharge Plan Discharge Attending physician on discharge: Kwaku Murry Consulting providers: Radha Serrano; Khadijah Barr Discharging Clinician: Kwaku Murry Patient Disposition: Home Activity: may shower, as tolerated and pelvic rest Diet: as tolerated Discharge Instructions: Education: Mom and Baby Guide Given to: Mother Follow-Up: Call your delivering provider's office for an appointment to be seen. Mom and baby should come to the [facility] for the follow-up appointment. Appointment Date/Time: October 30, 2024 at 9:00 am What to expect at your follow-up visit: Physical Assessment Call [phone] if you are unable to keep your appointment time. BREAST CARE: * Wear a snug supportive bra. * For engorgement discomfort: Bottle Feeding: * May apply ice packs PERINEAL CARE: * Until bleeding stops, use your shlomo bottle after urinating * Change your pad frequently throughout the day * You may take sitz baths several times a day (fill your bathtub with warm water and soak for 20 minutes.) Do NOT bathe in the water * No tub baths until seen by your physician - You may shower ACTIVITY: * Rest as much as possible. * Do not exercise or lift anything heavier than your baby (such as laundry or other children.) * Avoid stairs or driving as much as possible. * Do not put anything into the vagina. No douching, tampons, or sexual activity until seen by physician. NOTIFY PHYSICIAN IF YOU HAVE ANY QUESTIONS OR IF ANY OF THE FOLLOWING SYMPTOMS OCCUR: * If your perineum becomes red, swollen, or more painful than what you have experienced in the hospital. * If your vaginal bleeding becomes foul smelling. * If your vaginal bleeding becomes more heavy than a period or if your bleeding changes from pink to bright red. However, you may pass an occasional walnut-sized clot once or twice for the first week . * If you experience a sharp, shooting pain in you calves. * If you discover a hard, reddened area on your breast or if you experience flu-like symptoms. DIET: * Eat regular, well-balanced meals. * Drink plenty of fluids daily. Patient Language: Macedonian Stand Alone Forms: General Discharge Information Follow-up/Referrals: Kwaku Murry MD [Physician] - 4 Weeks Discharge Medications: New docusate sodium 100 mg Capsule 100 mg PO BID PRN (Reason: Constipation) Qty: 60 0RF ibuprofen 600 mg Tablet 600 mg PO Q6H PRN (Reason: Cramping) Qty: 30 0RF Continued Daily [id number] mg-mcg-mg Combo Pack 1 pkg PO DAILY ferrous sulfate 325 mg BYMOUTH BID Discontinued aspirin 81 mg tablet 162 mg PO DAILY Date of admission: 10/27/24 04:59 Primary Care Provider: Allan,Carlos Maldonado Admitting Provider: Kwaku Murry Attending physician on admission: Kwaku Murry Condition: Stable
== END 2024-10-28 15:35 | disposition home or self-care (01) | DRG 807 ==
LOC: ANHLDR 05:02 → ANHOB2 17:14
PROVIDERS: Admitting Provider Obstetrics & Gynecology; PCP Internal Medicine; Visit Provider Obstetrics & Gynecology
DX: O99.02 Anemia complicating childbirth (principal); Z37.0 Single live birth; Z3A.39 39 weeks gestation of pregnancy; O99.824 Streptococcus B carrier state complicating childbirth; D64.9 Anemia, unspecified; O69.81X0 Labor and delivery complicated by cord around neck, without compression, not applicable or unspecified
CPT/HCPCS: 36415; 80053; 85014; 85018; 85025; 86593; 86850; 86900; 86901; A9270; J0290; J2590; J2795; J7120